=== PATIENT | female | born 1965 | race Caucasian/White ===

== ENCOUNTER → 2017-06-29 | Outpatient (CLI) | payer OTHER | END | disposition home or self-care (01) | LOC: MAMMO 13:14 | DX: N63.20 Unspecified lump in the left breast, unspecified quadrant (principal) | CPT/HCPCS: 76641; 77066; G0279 ==

== ENCOUNTER → 2017-07-23 | Outpatient (CLI) | payer OTHER ==
[2017-07-23] MEDS: REGADENOSON 0.4 MG/5 ML DISP.SYRIN. IV (11:41)
== END | disposition home or self-care (01) ==
LOC: NM 09:09
DX: R94.31 Abnormal electrocardiogram [ECG] [EKG] (principal); I10 Essential (primary) hypertension; E11.9 Type 2 diabetes mellitus without complications; Z86.73 Personal history of transient ischemic attack (TIA), and cerebral infarction without residual deficits
CPT/HCPCS: 78452; 93017; 93306; 96374; 96375; 96376; A9500; J2785

== ENCOUNTER 2017-08-03 07:57 | Outpatient (CLI) | payer OTHER ==
[2017-08-03 08:42] LABS: ANION GAP 11 (6-14); BLOOD UREA NITROGEN 20 mg/dL (7-20); CALCIUM 9.7 mg/dL (8.5-10.1); CARBON DIOXIDE 30 mmol/L (21-32); CHLORIDE 100 mmol/L (98-107); CREATININE 0.8 mg/dL (0.6-1.0); GFR 75.3; GLUCOSE 127 mg/dL (70-99); POTASSIUM 3.1 mmol/L (3.5-5.1); SODIUM 141 mmol/L (136-145)
[2017-08-03 08:57] LABS: HEMATOCRIT 44.3 % (36.0-47.0); HEMOGLOBIN 14.7 g/dL (12.0-15.5); MEAN CORPUSCULAR HEMOGLOBIN 30 pg (25-35); MEAN CORPUSCULAR HGB CONC 33 g/dL (31-37); MEAN CORPUSCULAR VOLUME 89 fL (79-100); PLATELET COUNT 369 x10^3/uL (140-400); RED BLOOD COUNT 4.98 x10^6/uL (3.50-5.40); RED CELL DISTRIBUTION WIDTH 16.2 % (11.5-14.5)
[2017-08-03 09:04] LABS: PROTHROMBIN TIME PATIENT 12.9 SEC (11.7-14.0)
[2017-08-03] MEDS ORDERED: IOHEXOL 300 MG/ML 100ML VIAL. (09:36)
[2017-08-03] MEDS ORDERED: LIDOCAINE 2% 20 ML VIAL. (09:36)
[2017-08-03] MEDS ORDERED: fentaNYL PF VIAL 100 MCG/2 ML VIAL (09:50)
[2017-08-03] MEDS ORDERED: MIDAZOLAM HCL/PF 2 MG/2 ML VIAL. ×2 (09:50→10:25)
[2017-08-03] MEDS ORDERED: VERAPAMIL 5 MG/2 ML VIAL. (10:02)
[2017-08-03] MEDS ORDERED: HEPARIN for IV BOLUS 10,000 UNIT/10 ML VIAL. (10:02)
[2017-08-03] MEDS ORDERED: NITROGLYCERIN 200 MCG/2 ML SYRINGE FOR CATH/VASC LAB. (10:02)
[2017-08-03] MEDS: MIDAZOLAM HCL/PF 2 MG/2 ML VIAL. IV (10:44)
[2017-08-03] MEDS: fentaNYL PF VIAL 100 MCG/2 ML VIAL IV (10:44)
[2017-08-03] MEDS: VERAPAMIL 5 MG/2 ML VIAL. IART (10:45)
[2017-08-03] MEDS: HEPARIN for IV BOLUS 10,000 UNIT/10 ML VIAL. IART (10:46)
[2017-08-03] MEDS: NITROGLYCERIN 200 MCG/2 ML SYRINGE FOR CATH/VASC LAB. IART (10:46)
[2017-08-03] MEDS: LIDOCAINE 2% 20 ML VIAL. IJ (10:47)
[2017-08-03] MEDS: IOHEXOL 300 MG/ML 100ML VIAL. IART (10:47)
[2017-08-03] MEDS ORDERED: IV 1/2 NORMAL SALINE 1,000 ML IV (10:48)
[2017-08-03] MEDS ORDERED: NITROGLYCERIN SUBLINGUAL 0.4 MG BOTTLE OF 25. SL (11:00)
[2017-08-03] MEDS ORDERED: oxyCODONE/APAP 5/325 1 TAB TABLET (11:27)
== END 2017-08-03 14:00 | disposition home or self-care (01) ==
LOC: CCL 07:57
DX: I25.118 Atherosclerotic heart disease of native coronary artery with other forms of angina pectoris (principal); I10 Essential (primary) hypertension; E11.9 Type 2 diabetes mellitus without complications; Z79.82 Long term (current) use of aspirin; Z79.899 Other long term (current) drug therapy; Z86.73 Personal history of transient ischemic attack (TIA), and cerebral infarction without residual deficits
CPT/HCPCS: 36415; 80048; 85027; 85610; 93458; 99152; 99153; C1769; C1892; J1644; J2250; J3010; J3490; Q9967

== ENCOUNTER → 2017-08-15 | Outpatient (CLI) | payer OTHER | END | disposition home or self-care (01) | LOC: US 09:42 | DX: C50.912 Malignant neoplasm of unspecified site of left female breast (principal); C77.3 Secondary and unspecified malignant neoplasm of axilla and upper limb lymph nodes | CPT/HCPCS: 19081; 19083; 38505; 76942; 77065; 88305; 88341; 88342; 88361; C1713 ==

== ENCOUNTER → 2017-09-28 | Outpatient (CLI) | payer OTHER | END | disposition home or self-care (01) | LOC: US 08:51 | DX: C50.912 Malignant neoplasm of unspecified site of left female breast (principal); R59.0 Localized enlarged lymph nodes; E78.00 Pure hypercholesterolemia, unspecified; I10 Essential (primary) hypertension; K21.9 Gastro-esophageal reflux disease without esophagitis; F32.9 Major depressive disorder, single episode, unspecified; F41.9 Anxiety disorder, unspecified; Z98.42 Cataract extraction status, left eye; Z98.41 Cataract extraction status, right eye | CPT/HCPCS: 38505; 60100; 76942; 88305; 88342; C1713 ==

== ENCOUNTER → 2017-10-17 | Outpatient (CLI) | payer OTHER | END | disposition home or self-care (01) | LOC: MAMMO 12:08 | DX: C50.412 Malignant neoplasm of upper-outer quadrant of left female breast (principal); E78.5 Hyperlipidemia, unspecified; Z17.0 Estrogen receptor positive status [ER+] | CPT/HCPCS: 76641; 77066 ==

== ENCOUNTER 2017-12-03 09:23 | Day surgery (SDC) | payer OTHER ==
[~2017-12-03 09:23] MED LIST: HEPARIN SODIUM 5,000 UNIT in IV NORMAL SALINE 500ML BAG 500 ML IRR; LIDOCAINE 1% PF 2 ML VIAL. ID; LIDOCAINE 1% PF 30 ML VIAL.; LIDOCAINE 2% PF Vial for OR 5 ML VIAL.; MIDAZOLAM HCL/PF 2 MG/2 ML VIAL.; MORPHINE SULFATE 2 MG/ML DISP.SYRIN. IV; ONDANSETRON PF 4 MG/2 ML VIAL. IV; PROCHLORPERAZINE 10 MG/2 ML VIAL. IV; PROPOFOL 20 ML IV; ceFAZolin 2GM PREMIX 2 GM/50 ML BAG IV; fentaNYL PF VIAL 100 MCG/2 ML VIAL; fentaNYL PF VIAL 100 MCG/2 ML VIAL IV
[2017-12-03 10:00] LABS: POC GLUCOSE 65 mg/dL (70-99)
[2017-12-03] MEDS: IV RINGERS,LACTATED 1000ML 1,000 ML IV (10:05)
[2017-12-03 10:41] LABS: POC GLUCOSE 80 mg/dL (70-99)
[2017-12-03] MEDS ORDERED: ONDANSETRON PF 4 MG/2 ML VIAL. (10:53)
[2017-12-03] MEDS ORDERED: DEXAMETHASONE SOD PHOS 20 MG/5 ML VIAL. (10:53)
[2017-12-03 11:56] LABS: POC GLUCOSE 66 mg/dL (70-99)
[2017-12-03] MEDS ORDERED: fentaNYL PF VIAL 100 MCG/2 ML VIAL (12:06)
[2017-12-03] MEDS: fentaNYL PF VIAL 100 MCG/2 ML VIAL IV ×2 (12:10→12:36)
[2017-12-03] MEDS ORDERED: HYDROcodone/APAP 5/325MG 1 TAB TABLET (12:26)
[2017-12-03] MEDS: HYDROcodone/APAP 5/325MG 1 TAB TABLET PO (12:33)
== END 2017-12-03 13:25 | disposition home or self-care (01) ==
LOC: SURG 09:23
DX: C50.912 Malignant neoplasm of unspecified site of left female breast (principal); C77.3 Secondary and unspecified malignant neoplasm of axilla and upper limb lymph nodes; I10 Essential (primary) hypertension; E78.00 Pure hypercholesterolemia, unspecified; F32.9 Major depressive disorder, single episode, unspecified; F41.9 Anxiety disorder, unspecified; E66.9 Obesity, unspecified; Z68.26 Body mass index [BMI] 26.0-26.9, adult; K21.9 Gastro-esophageal reflux disease without esophagitis; Z87.442 Personal history of urinary calculi; Z86.73 Personal history of transient ischemic attack (TIA), and cerebral infarction without residual deficits; E11.319 Type 2 diabetes mellitus with unspecified diabetic retinopathy without macular edema; Z90.49 Acquired absence of other specified parts of digestive tract; Z98.890 Other specified postprocedural states; Z98.51 Tubal ligation status; Z98.42 Cataract extraction status, left eye; Z96.1 Presence of intraocular lens; Z17.0 Estrogen receptor positive status [ER+]; Z82.3 Family history of stroke; Z82.49 Family history of ischemic heart disease and other diseases of the circulatory system; Z87.891 Personal history of nicotine dependence; Z72.89 Other problems related to lifestyle; Z79.82 Long term (current) use of aspirin; Z79.899 Other long term (current) drug therapy; Z91.040 Latex allergy status; Z91.048 Other nonmedicinal substance allergy status; Z87.440 Personal history of urinary (tract) infections; Z79.84 Long term (current) use of oral hypoglycemic drugs
CPT/HCPCS: 36556; 36561; 71045; 77001; 82962; A7015; C1788; J0690; J1100; J1644; J2001; J2250; J2405; J2704; J3010; J7040

== ENCOUNTER 2018-04-15 09:52 | Observation (INO) | payer OTHER ==
[2018-04-15] VITALS (11 sets, daily range): BP systolic 119–174; BP diastolic 49–75
[~2018-04-15] VITALS: Ht 157.5 cm; Wt 65.8 kg
[~2018-04-15 09:52] MED LIST changes: +AMLO10TA6 PO; +ASPI-482 PO; +ATOR20TA58 PO; +BUPR150T6 PO; +CIPR500T94 PO; +CITA20TA9 PO; +CLOP75TA PO; +GLIP5TAB10 PO; -HEPARIN SODIUM 5,000 UNIT in IV NORMAL SALINE 500ML BAG 500 ML IRR; +HYDR-2868 PO; +HYDR-3164 PO; +HYDROmorphone 2 MG/ML VIAL IV PRN; -LIDOCAINE 1% PF 2 ML VIAL. ID; +LIDOCAINE 1% PF 2 ML VIAL. ID PRN; -LIDOCAINE 1% PF 30 ML VIAL.; -LIDOCAINE 2% PF Vial for OR 5 ML VIAL.; +LISI-130 PO; +METF10007 PO; +METF500T16 PO; -MIDAZOLAM HCL/PF 2 MG/2 ML VIAL.; -MORPHINE SULFATE 2 MG/ML DISP.SYRIN. IV; +MORPHINE SULFATE 2 MG/ML VIAL. IV PRN; +MULT1TAB52 PO; -ONDANSETRON PF 4 MG/2 ML VIAL. IV; +ONDANSETRON PF 4 MG/2 ML VIAL. IV PRN; +PARO20TA3 PO; -PROCHLORPERAZINE 10 MG/2 ML VIAL. IV; +PROCHLORPERAZINE 10 MG/2 ML VIAL. IV PRN; -PROPOFOL 20 ML IV; +RANI150T2 PO; -ceFAZolin 2GM PREMIX 2 GM/50 ML BAG IV; -fentaNYL PF VIAL 100 MCG/2 ML VIAL; -fentaNYL PF VIAL 100 MCG/2 ML VIAL IV; +fentaNYL PF VIAL 100 MCG/2 ML VIAL IV PRN
[2018-04-15] MEDS: IV RINGERS,LACTATED 1000ML 1,000 ML IV SCH ×2 (11:24→15:44)
[2018-04-15] MEDS ORDERED: PROPOFOL 20 ML IV ONE (12:15)
[2018-04-15] MEDS ORDERED: ONDANSETRON PF 4 MG/2 ML VIAL. ONE (12:15)
[2018-04-15] MEDS ORDERED: fentaNYL PF VIAL 100 MCG/2 ML VIAL ONE ×2 (12:15→13:42)
[2018-04-15] MEDS ORDERED: LIDOCAINE 2% PF Vial for OR 5 ML VIAL. ONE (12:15)
[2018-04-15] MEDS ORDERED: DEXAMETHASONE SOD PHOS 20 MG/5 ML VIAL. ONE (12:15)
[2018-04-15] MEDS ORDERED: MIDAZOLAM HCL/PF 2 MG/2 ML VIAL. ONE (12:16)
[2018-04-15] MEDS ORDERED: ISOSULFAN BLUE 50 MG/5 ML VIAL. SQ ONE (12:37)
[2018-04-15] MEDS ORDERED: SEVOFLURANE 61 TO 120 MINUTES. IH ONE (13:48)
[2018-04-15] MEDS ORDERED: PHENYLEPHRINE 10 MG/ML VIAL. ONE (13:48)
[2018-04-15] MEDS ORDERED: SEVOFLURANE > 120 MINUTES. IH ONE (14:53)
[2018-04-15] MEDS: IV 1/2 NORMAL SALINE 1,000 ML IV SCH (15:29)
--- NOTE | 2018-04-15 15:29 | PDOC4 ---
Operative Note Operative Note Operative Note: Preoperative Diagnosis: Left breast cancer Postoperative Diagnosis: Same Procedure: Left modified radical mastectomy, removal of Port-A-Cath Surgeon: Burt Medical Records Analyst: Radhika MORELAND Anesthesia: Gen. EBL: 50 mL Specimen: Left breast, axillary contents to pathology Drains: 19 Azerbaijani round Greg drain to chest wall Complications: None Indication: The patient is a 53-year-old female who has been receiving neoadjuvant chemotherapy for left breast cancer. She's had a partial response however continues to have a moderate-sized tumor with lymphadenopathy. The plan is to proceed with a modified radical mastectomy and her Port-A-Cath will be removed as well. The risks of surgery were discussed with the patient which include bleeding, infection, scar tissue, pain, lymphedema, anesthetic risk, wound healing problems, potential need for additional surgery or procedure. She understands and would like to proceed. Description: The patient was taken to the operating room and placed supine on the operating table. Gen. anesthesia was performed. The bilateral chest and left axilla were prepped with ChloraPrep and draped in a standard surgical manner. An elliptical incision was made across the left breast extending from the axilla to the medial aspect and including the nipple areolar complex. The superior flap was developed first. The skin was mobilized from the deeper breast parenchyma using cautery and the dissection continued just below the level of the clavicle. In a similar manner the inferior flap was developed the skin from the breast extending to the upper torso including the inframammary fold. In a medial to lateral fashion the breast was taken off of the chest wall with cautery. A stitch was used to chato the 12 o'clock position and the breast was sent off to pathology. We then began the axillary dissection. The boundaries of the dissection included the axillary vein superiorly, the pectoralis muscle medially, and the latissimus muscle laterally. In a superior to inferior manner the adipose and lymphatic tissues were mobilized out of the axilla. Both the long thoracic and thoracodorsal nerves were identified and preserved. A few small vessels feeding the axillary contents were ligated with 2-0 Vicryl and divided. The axillary contents were then completely excised and sent to pathology. Hemostasis was good. A 19 Azerbaijani round Greg drain was left in the chest space which exited inferiorly and was secured to the skin with 2-0 silk. The subcutaneous tissues closed with 3-0 Vicryl and the skin was approximated with 4-0 Monocryl. We then directed our attention to the right chest. With a scalpel an incision was made at the prior Port-A-Cath scar. The capsule of the port was opened and the attaching Prolene sutures were cut. The port was then withdrawn and the tract of the catheter was oversewn with 2-0 Vicryl. Hemostasis was good with cautery and the skin was closed with 4-0 Monocryl. Dressings were applied and the patient was sent to the recovery room in stable condition. At the end of the case all counts were correct. EMIL FUENTES MD Apr 15, 2018 15:29
[2018-04-15] MEDS ORDERED: oxyCODONE/APAP 5/325 1 TAB TABLET PO PRN (15:30)
[2018-04-15] MEDS ORDERED: ONDANSETRON PF 4 MG/2 ML VIAL. IV PRN (15:30)
[2018-04-15] MEDS ORDERED: MORPHINE SULFATE 2 MG/ML VIAL. IV PRN (15:30)
[2018-04-15] MEDS ORDERED: 0.9 % SODIUM CHLORIDE 10 ML DISP.SYRIN. IV PRN (15:30)
[2018-04-15] MEDS ORDERED: glipiZIDE 5 MG TABLET PO PRN (15:45)
[2018-04-15] MEDS ORDERED: DEXTROSE 50% 25 GM / 50ML DISP.SYRIN. IV PRN (15:45)
[2018-04-15] MEDS: fentaNYL PF VIAL 100 MCG/2 ML VIAL IV PRN ×2 (15:53→16:23)
[2018-04-15] MEDS: INSULIN LISPRO 300 UNITS/3 ML INSULN.PEN. SQ SCH (17:00)
[2018-04-15] MEDS: PARoxetine 20 MG TABLET PO SCH (17:55)
[2018-04-15] MEDS: metFORMIN 500 MG TABLET PO SCH (17:55)
[2018-04-15] MEDS: amLODIPine BESYLATE 10 MG TABLET PO SCH (17:56)
[2018-04-15] MEDS: oxyCODONE/APAP 5/325 1 TAB TABLET PO PRN (17:58)
[2018-04-15] MEDS ORDERED: buPROPion XL 150 MG TAB.ER.24H. PO SCH (18:00)
[2018-04-15] MEDS ORDERED: ATORVASTATIN CALCIUM 20 MG TABLET PO SCH (21:00)
[2018-04-15] MEDS: FAMOTIDINE 20 MG TABLET. PO SCH (21:11)
[2018-04-15] MEDS: hydrALAZINE 25 MG TABLET PO SCH (21:12)
[2018-04-15] MEDS ORDERED: INSULIN LISPRO 300 UNITS/3 ML INSULN.PEN. SQ ONE (21:45)
[2018-04-16 03:00] VITALS: BP 145/62
[2018-04-16] MEDS: IV 1/2 NORMAL SALINE 1,000 ML IV SCH (03:20)
[2018-04-16 07:00] VITALS: BP 145/67
[2018-04-16] MEDS: INSULIN LISPRO 300 UNITS/3 ML INSULN.PEN. SQ SCH ×2 (08:00→11:52)
[2018-04-16] MEDS: amLODIPine BESYLATE 10 MG TABLET PO SCH (08:09)
[2018-04-16] MEDS: metFORMIN 500 MG TABLET PO SCH (08:09)
[2018-04-16] MEDS: hydrALAZINE 25 MG TABLET PO SCH (08:10)
[2018-04-16] MEDS: PARoxetine 20 MG TABLET PO SCH (08:10)
[2018-04-16] MEDS: FAMOTIDINE 20 MG TABLET. PO SCH (08:10)
[2018-04-16] MEDS: oxyCODONE/APAP 5/325 1 TAB TABLET PO PRN (08:13)
--- NOTE | 2018-04-16 08:17 | PDOC ---
CYNDY GAONA APRN 04/16/18 0817: SURGICAL PROGRESS NOTE Subjective tolerating diet pain managed urinating Vital Signs Vital Signs Date Time Temp Pulse Resp B/P (MAP) Pulse Ox O2 Delivery O2 Flow Rate FiO2 04/16/18 08:13 Room Air 04/16/18 08:10 91 145/67 04/16/18 03:00 98.5 18 95 2.0 98.5 I&O Intake and Output 04/16/18 07:00 Intake Total 2780 ml Output Total 1120 ml Balance 1660 ml Intake Oral 630 ml IV Total 2150 ml Output Urine Total 900 ml Drainage Total 170 ml Estimated Blood Loss 50 ml # Voids 1 General: Alert, Oriented X3, Cooperative, No acute distress Skin: Other (left breast incision dressing dry, no significant swelling, drain serosang ) Labs Laboratory Tests Test 04/15/18 11:17 04/15/18 15:24 04/15/18 20:49 04/16/18 07:26 Glucose (Fingerstick) 85 mg/dL (70-99) 99 mg/dL (70-99) 206 mg/dL (70-99) 89 mg/dL (70-99) Laboratory Tests Test 04/15/18 11:17 04/15/18 15:24 04/15/18 20:49 04/16/18 07:26 Glucose (Fingerstick) 85 mg/dL (70-99) 99 mg/dL (70-99) 206 mg/dL (70-99) 89 mg/dL (70-99) Assessment/Plan s/p left radical mastectomy drain teaching home today EMIL FUENTES MD 04/16/18 1242: SURGICAL PROGRESS NOTE Assessment/Plan Agree with above CYNDY GAONA APRN Apr 16, 2018 08:17 EMIL FUENTES MD Apr 16, 2018 12:42
--- NOTE | 2018-04-16 08:19 | DISCH ---
DISCHARGE INSTRUCTIONS Condition on Discharge Condition on Discharge: Stable Activity After Discharge Activity Instructions for Disc: Resume previous activity Bathing Instructions: Shower-keep dressing dry Lifting Instructions after Dis: No heavy lifting, No pulling or pushing Driving Instructions after Dis: Do not drive, Other, see below Diet after Discharge Diet after Discharge: Regular Wound Incision Care Wound/Incision Care: Do not change dressing, Other, see below Other wound/incision instructi: drain teaching Contacting the after DC Call your doctor for: Concerns you may have Follow-Up Follow up with: Dr Dallas 1 week, call to schedule [phone] CYNDY GAONA RHEOSTAT ASSEMBLER Apr 16, 2018 08:19
[2018-04-16] MEDS ORDERED: OXYC1TAB15 PO (08:20)
[2018-04-16] MEDS ORDERED: MULTIVITAMIN with MINERAL TABLET. PO SCH (09:00)
[2018-04-16] MEDS ORDERED: ASPIRIN ENTERIC COATED 81 MG TABLET.DR. PO SCH (09:00)
[2018-04-16] MEDS ORDERED: LISINOPRIL 20 MG TABLET PO SCH (09:00)
[2018-04-16 11:00] VITALS: BP 128/53
== END 2018-04-16 12:47 | disposition home or self-care (01) ==
LOC: SURG 09:52 → 4 NORTH 15:50
PROVIDERS: ADMIT Surgery; ATTEND Surgery
DX: C50.912 Malignant neoplasm of unspecified site of left female breast (principal); Z79.899 Other long term (current) drug therapy
CPT/HCPCS: 19307; 36590; 82962; A7015; G0378; G0379; J0690; J0780; J1100; J1815; J2001; J2250; J2405; J2704; J3010; J7120; J2270; Q9968

== ENCOUNTER 2018-05-01 19:31 | Emergency (ER) | payer OTHER ==
[~2018-05-01] VITALS: Ht 160 cm; Wt 67.1 kg
[~2018-05-01 19:31] MED LIST changes: -HYDROmorphone 2 MG/ML VIAL IV PRN; -LIDOCAINE 1% PF 2 ML VIAL. ID PRN; -MORPHINE SULFATE 2 MG/ML VIAL. IV PRN; -ONDANSETRON PF 4 MG/2 ML VIAL. IV PRN; +OXYC1TAB15 PO; -PROCHLORPERAZINE 10 MG/2 ML VIAL. IV PRN; -fentaNYL PF VIAL 100 MCG/2 ML VIAL IV PRN
[2018-05-01 20:20] VITALS: BP 169/77
--- NOTE | 2018-05-01 23:01 | PHYS DOC ---
Past Medical History Past Medical History: Depression, Diabetes-Type II, Hypertension, Other Additional Past Medical Histor: sciatica, Past Surgical History: Appendectomy, Tubal ligation, Other Additional Past Surgical Histo: LEFT MASECTOMY Alcohol Use: None Drug Use: None Adult General Chief Complaint Chief Complaint: POST-OP PROBLEM HPI HPI Patient is a 53 year old f with cc of referred by ab due to drain fell out. Apparently the patient thought that the drain cracked and broke in her skin family member thought that he could see it at the skin level Dr. Whalen called me and asked me to look to see if I could take it out with the hemostat Allergies Allergies Allergies Coded Allergies Type Severity Reaction Last Updated Verified Latex, Natural Rubber Allergy Intermediate GETS BLISTER,CHAPPED SKIN ON HANDS 04/15/18 Yes Physical Exam Physical Exam Constitutional: Well developed, well nourished, no acute distress, non-toxic appearance. [] HENT: Normocephalic, atraumatic, bilateral external ears normal, oropharynx moist, no oral exudates, nose normal. [] Eyes: PERRLA conjunctiva normal, no discharge. [] Pulmonary: Normal respiratory effort no increased work of breathing no obvious chest wall trauma Skin: The lateral skin incision left upper chest area in the midaxillary line there is a 0.5 cm opening there is no surrounding infection seen there is trace serosanguineous discharge noted I did use a hemostat to explore the wound and I found nothing. I did look at the WU drain it appear to be removed entirely in 1 piece. she had it at the bedside in a bag Back: No tenderness, no CVA tenderness. [] Extremities: No tenderness, no cyanosis, no clubbing, ROM intact, no edema. [] Neurologic: Alert and oriented X 3, normal motor function, normal sensory function, no focal deficits noted. [] Current Patient Data Vital Signs Vital Signs Date Time Temp Pulse Resp B/P (MAP) Pulse Ox O2 Delivery O2 Flow Rate FiO2 05/01/18 20:20 98.3 89 18 169/77 (107) 99 Room Air 98.3 EKG EKG [] Radiology/Procedures Radiology/Procedures [] Impressions: cxr no radioopaque drain seeen. Course & Med Decision Making Course & Med Decision Making Pertinent Labs and Imaging studies reviewed. (See chart for details) []i talked with ab, he suggests xray if negative can f/u tomrorow in clinic. reviewed with pt recommended also bp f/u one month it was mildly elevated. wound was redressed with gauze and pt was given some materials for home care as well. Dragon Disclaimer Dragon Disclaimer This electronic medical record was generated, in whole or in part, using a voice recognition dictation system. Departure Departure Impression: Primary Impression: Visit for wound check Additional Impression: Elevated blood pressure reading Disposition: HOME, SELF-CARE Condition: STABLE Referrals: KARINE KEEN MD (PCP) Patient Instructions: Wound Check Problem Qualifiers OSEAS CANDELARIO MD May 01, 2018 23:01
--- NOTE | 2018-05-01 23:22 | RAD ---
PORTABLE CHEST 1V Clinical Indication: Mechanical fall today Comparison: AP chest December 03, 2017. Findings: Previously seen right Port-A-Cath has been removed. Atherosclerotic aortic arch. Cardiac size upper limits of normal, stable. Stable calcified granuloma right midlung. Lungs are clear. There is no pneumothorax. No pleural effusion is appreciated. Degenerative endplate spurring of the thoracic spine is moderate. IMPRESSION: No acute cardiopulmonary process. Electronically signed by: Kian Figueroa MD (05/01/2018 11:18 PM) [facility]
[2018-05-02] MEDS ORDERED: OXYC1TAB15 PO (09:23)
== END 2018-05-01 21:40 | disposition home or self-care (01) ==
LOC: ER 19:31
DX: Z48.01 Encounter for change or removal of surgical wound dressing (principal); I10 Essential (primary) hypertension; E11.9 Type 2 diabetes mellitus without complications; Z90.89 Acquired absence of other organs; Z91.040 Latex allergy status
CPT/HCPCS: 71045; 99283

== ENCOUNTER 2018-05-08 12:00 | Day surgery (SDC) | payer OTHER ==
[2018-05-08] MEDS ORDERED: IV RINGERS,LACTATED 1000ML 1,000 ML IV SCH (12:45)
[2018-05-08] MEDS ORDERED: PROPOFOL 20 ML IV ONE (13:27)
[2018-05-08] MEDS ORDERED: LIDOCAINE 2% PF Vial for OR 5 ML VIAL. ONE (13:27)
[2018-05-08] MEDS ORDERED: LIDOCAINE 1%/EPI 1:100,000 20 ML VIAL. ONE (13:47)
[2018-05-08] MEDS ORDERED: DEXAMETHASONE SOD PHOS 20 MG/5 ML VIAL. ONE (14:08)
[2018-05-08] MEDS ORDERED: ONDANSETRON PF 4 MG/2 ML VIAL. ONE (14:08)
[2018-05-08] MEDS ORDERED: SEVOFLURANE 31 TO 60 MINUTES. IH ONE (14:08)
[2018-05-08] MEDS ORDERED: fentaNYL PF VIAL 100 MCG/2 ML VIAL ONE (14:12)
[2018-05-08] MEDS ORDERED: ePHEDrine PF IN SALINE 50 MG/5 ML DISP.SYRIN IV ONE (14:27)
--- NOTE | 2018-05-08 14:56 | PDOC4 ---
Operative Note Operative Note Operative Note: Preoperative Diagnosis: Left chest wall seroma Postoperative Diagnosis: Same Procedure: Drainage of left chest wall seroma Surgeon: Burt Conductor Orchestra: Tamia MORELAND Anesthesia: Gen EBL: 15 ml Specimen: None Drains: 19 Fr WU Complications: None Indication: The patient is a 53-year-old female who recently underwent a left mastectomy for breast cancer. Her drain came out while at home prematurely and she is developed a sizable chest seroma. In addition there is a very thin eschar at the middle portion of her incision site. The plan is for the seroma collection with replacement of the drain and excision of the eschar. The risks of surgery were discussed with the patient which include bleeding infection recurrence pain anesthetic risk potential need for additional surgery or procedure. She understands and would like to proceed. Description: The patient was taken the operating room placed supine on the operating table. Gen. anesthesia was performed. The left chest skin was prepped with ChloraPrep and draped in a standard surgical manner. The middle portion of her prior incision site showed a very small thin eschar. With a scalpel an elliptical incision was made around the eschar which was excised. There was immediate return of a large amount of serous fluid from the seroma. The seroma cavity was fully drained. The seroma cavity was then washed with sterile saline and a 19 Telugu round Greg drain was placed in the cavity which exited inferiorly. The drain was secured to the skin with 2-0 silk. The subcutaneous tissue was approximated over the drain with 3-0 Vicryl. The skin was then approximated with 4-0 Monocryl. A sterile OpSite dressing was then applied. The patient tolerated the procedure well and was sent to the recovery room in stable condition. At the end of the case all counts were correct. EMIL FUENTES MD May 08, 2018 14:56
--- NOTE | 2018-05-08 15:06 | DISCH ---
DISCHARGE INSTRUCTIONS Condition on Discharge Condition on Discharge: Stable Activity After Discharge Activity Instructions for Disc: Resume previous activity Diet after Discharge Diet after Discharge: Regular Wound Incision Care Wound/Incision Care: Other, see below (keep dressing clean and dry) Follow-Up Follow up with: Dr Fuentes 1 week in the office, call for appt [phone] EMIL FUENTES MD May 08, 2018 15:06
[2018-05-08] MEDS ORDERED: oxyCODONE/APAP 5/325 1 TAB TABLET PO ONE (15:30)
[2018-05-08 15:45] VITALS: BP 161/66
== END 2018-05-08 16:14 | disposition home or self-care (01) ==
LOC: SURG 12:00
PROVIDERS: ATTEND Surgery
DX: M96.843 Postprocedural seroma of a musculoskeletal structure following other procedure (principal); F32.9 Major depressive disorder, single episode, unspecified; I10 Essential (primary) hypertension; E78.5 Hyperlipidemia, unspecified; Z85.3 Personal history of malignant neoplasm of breast; Z91.040 Latex allergy status; Z79.82 Long term (current) use of aspirin; Z79.899 Other long term (current) drug therapy; Z87.442 Personal history of urinary calculi; Z86.73 Personal history of transient ischemic attack (TIA), and cerebral infarction without residual deficits; E11.319 Type 2 diabetes mellitus with unspecified diabetic retinopathy without macular edema; Z98.51 Tubal ligation status; Z90.49 Acquired absence of other specified parts of digestive tract; Z98.42 Cataract extraction status, left eye; Z96.1 Presence of intraocular lens; Z98.890 Other specified postprocedural states; Z90.12 Acquired absence of left breast and nipple; Z82.49 Family history of ischemic heart disease and other diseases of the circulatory system; Z82.3 Family history of stroke; Z87.891 Personal history of nicotine dependence; Z72.89 Other problems related to lifestyle; Y83.8 Other surgical procedures as the cause of abnormal reaction of the patient, or of later complication, without mention of misadventure at the time of the procedure; Z79.84 Long term (current) use of oral hypoglycemic drugs
CPT/HCPCS: 10140; 82962; A7015; J0690; J1100; J2001; J2405; J2704; J3010; J7120; J0696; J3490

== ENCOUNTER → 2018-12-02 | Outpatient (CLI) | payer OTHER ==
[~2018-12-02] MED LIST changes: -AMLO10TA6 PO; +AMLO10TA8 PO
--- NOTE | 2018-12-02 13:46 | RAD ---
DATE: 12/02/2018 EXAM: DIGITAL DIAGNOSTIC RT HISTORY: Left mastectomy in 2018 COMPARISON: 10/17/2017 mammographic exam This study was interpreted with the benefit of Computerized Aided Detection (CAD). Breast Density: SCATTERED The breast parenchyma shows scattered fibroglandular densities. Breast parenchyma level B. FINDINGS: Minimal benign calcification is present. No mass or distortion in the interval. No suspicious calcification identified. IMPRESSION: Stable BI-RADS CATEGORY: 1 NEGATIVE RECOMMENDED FOLLOW-UP: 12M 12 MONTH FOLLOW-UP PQRS compliance statement: Patient information was entered into a reminder system with a target due date in one year for the next mammogram. Mammography is a sensitive method for finding small breast cancers, but it does not detect them all and is not a substitute for careful clinical examination. A negative mammogram does not negate a clinically suspicious finding and should not result in delay in biopsying a clinically suspicious abnormality. "Our facility is accredited by the [employer] Mammography Program."
== END | disposition home or self-care (01) ==
LOC: MAMMO 14:51
PROVIDERS: ATTEND Internal Medicine Hematology & Oncology
DX: C50.412 Malignant neoplasm of upper-outer quadrant of left female breast (principal); R92.1 Mammographic calcification found on diagnostic imaging of breast; Z17.0 Estrogen receptor positive status [ER+]; Z90.12 Acquired absence of left breast and nipple
CPT/HCPCS: 77065

== ENCOUNTER → 2019-12-04 | Outpatient (CLI) | payer MEDICARE, OTHER ==
[~2019-12-04] MED LIST changes: +MULT-445 PO; -MULT1TAB52 PO
--- NOTE | 2019-12-04 12:07 | RAD ---
DATE: 12/04/2019 9:43 AM EXAM: MAMMO YVETTE BAXTER RT, BREAST RIGHT HISTORY: Patient due for screening but has a personal history of left mastectomy for breast cancer in 2018. Her medical oncologist refers her for diagnostic right mammogram. COMPARISON: Bilateral diagnostic mammogram and bilateral breast ultrasound of June 29, 2017, right diagnostic mammogram 12/02/2018. TECHNIQUE: CC and MLO views of the right breast were obtained. Breast tomosynthesis was performed in CC and MLO projections. A right Spot CC and a full-field lateral 2-D and 3-D ML view of the breasts were obtained. This study was interpreted with the benefit of Computerized Aided Detection (CAD). Targeted ultrasound of the upper-outer quadrant right breast was also performed. FINDINGS: Breast Density: HETERO The breast parenchyma Is heterogeneously dense, which could reduce sensitivity of mammography. Breast parenchyma level C An asymmetry in the lateral posterior right breast best appreciated on image 15 of 30 on the CC tomographic series changed configuration on additional views in a pattern suggesting overlap of dense fibroglandular tissue. Targeted ultrasound of the upper-outer quadrant right breast was also pursued at this visit and showed no definite sonographic abnormality. IMPRESSION: Probably benign overlap of dense fibroglandular tissue in the lateral posterior right breast. BI-RADS CATEGORY: 3 PROBABLY BENIGN FINDING(S)-SHORT INTERVAL FOLLOW-UP SUGGESTED RECOMMENDED FOLLOW-UP: 6M 6 MONTH FOLLOW-UP Recommend six-month follow-up right diagnostic mammogram with possible ultrasound. Discussed with the patient in person prior to her discharge from the imaging suite, as well as with her medical oncologist Dr. Zaldivar by telephone at 11:34 AM on 12/04/2019. PQRS compliance statement: Patient information was entered into a reminder system with a target due date for the next mammogram. Mammography is a sensitive method for finding small breast cancers, but it does not detect them all and is not a substitute for careful clinical examination. A negative mammogram does not negate a clinically suspicious finding and should not result in delay in biopsying a clinically suspicious abnormality. "Our facility is accredited by the [employer] Mammography Program."
== END | disposition home or self-care (01) ==
LOC: MAMMO 09:14
PROVIDERS: ATTEND Internal Medicine Hematology & Oncology
DX: R92.2 Inconclusive mammogram (principal)
CPT/HCPCS: 76641; 77065; G0279; 77061

== ENCOUNTER → 2020-03-10 | Outpatient (CLI) | payer MEDICARE ==
[~2020-03-10] MED LIST changes: +AMLO-187 PO; -AMLO10TA8 PO
--- NOTE | 2020-03-10 16:29 | RAD ---
Examination: 1. Digital diagnostic right mammogram. 2. Targeted right breast ultrasound INDICATION: 55-year-old woman with a history of left mastectomy for breast cancer presents with a new palpable lump in the right breast identified on self exam the past 3 weeks and confirmed on clinical exam by her referring physician (surgeon). She had recently been referred for diagnostic imaging of the right breast as part of routine surveillance and had been assessed as probably benign with an asymmetry in the lateral posterior right breast recommended for six-month short-term follow-up. COMPARISON: Right diagnostic mammogram of 12/04/2019, right screening mammogram of 12/02/2018 TECHNIQUE: CC and MLO views of the right breast were obtained with 2-D and 3-D technique and reviewed with computer-aided detection. Targeted ultrasound of the superior right breast the" as well as in the right axilla was also performed. FINDINGS: Heterogeneously dense breast parenchyma. A developing dense mass in the posterior central right breast measuring 1.9 cm at the right 12:00 position 12 cm from the nipple on mammography is newly apparent. This corresponds with the area of palpable concern is marked at the skin surface of the triangular marker. It has no relation to the area of questioned asymmetry in the lateral posterior right breast that was recommended for short-term follow-up. On diagnostic mammography at this visit, that area is mammographically benign. Targeted ultrasound of the right breast in the area of clinical and current mammographic concern reveals a hypoechoic irregular 1.8 cm mass in the area of palpable concern at the 1:00 position 11 cm from the nipple that corresponds to the mammographic finding. This is highly suggestive of malignancy. Targeted ultrasound of the right axilla also shows an axillary lymph node with eccentric cortical thickening that is mildly suspicious. IMPRESSION: New 1.8 cm right breast mass is highly suggestive of malignancy. Ultrasound-guided core needle biopsy is recommended. Right axillary lymph nodes with eccentric cortical thickening are also suspicious. Ultrasound-guided core needle biopsy also recommended. BI-RADS Category 5 Findings highly suggestive of malignancy. Biopsy recommended. Discussed with referring physician Dr. Juan F Dallas by telephone at approximately 11:30 AM on March 10, 2020. Electronically signed by: Kirstie Neal MD (03/10/2020 4:26 PM) [id number]
--- NOTE | 2020-03-10 16:44 | RAD ---
Examination: 1. Ultrasound-guided right breast core needle biopsy. 2. Ultrasound-guided right axillary lymph node core needle biopsy 3. Right postprocedure mammogram. INDICATION: Suspicious right breast palpable mass and right axillary lymph node recommended for biopsy. Patient is 55 years old and has a personal history of left mastectomy for breast cancer. COMPARISON: Earlier same day right mammogram and breast ultrasound. TECHNIQUE AND FINDINGS: Informed consent was obtained. An appropriate procedural pause was observed. Using standard sterile technique, ultrasound guidance and local anesthesia, the right breast mass at the 1:00 position 11 cm from the nipple was initially targeted for biopsy and the passes were made through the mass after which an S-shaped biopsy marker was deployed and hemostasis ensured with direct breast compression for 10 minutes. Thereafter, attention was turned to the right axillary lymph node showing asymmetric cortical thickening and two 14-gauge core biopsy samples were obtained, taking care to avoid an adjacent artery during lymph node sampling. An open padlock-shaped biopsy marker was deployed in the lymph node and hemostasis ensured with direct breast compression for 10 minutes. Digital right post procedure mammogram shows heterogeneously dense breast parenchyma. There is satisfactory deployment of the biopsy marker along the medial edge of the palpable mass in the medial superior right breast. The open padlock biopsy marker I deployed is appropriately located along the cortical margin of the selected lymph node. However, an S-shaped biopsy marker is also noted in the adjacent right axillary lymph node. Patient does not believe she has had a previous biopsy of her right axillary lymph nodes. No postbiopsy hematoma. IMPRESSION: 1. Successful, uncomplicated ultrasound-guided core needle biopsy of the palpable lump in the right breast and of the right axillary lymph node with eccentric cortical thickening. Pathology results are pending. An addendum will be issued once pathology results become available. 2. Patient does have evidence of a previous right axillary lymph node biopsy that was marked with an S-shaped biopsy marker. Correlation with previous histopathology results could be beneficial. The right axillary node targeted for biopsy at this visit was marked with an open padlock shaped biopsy marker. 3. Successful biopsy marker deployment in the right breast and right axilla with no postbiopsy hematoma. Electronically signed by: Kirstie Neal MD (03/10/2020 4:41 PM) [id number]
--- NOTE | 2020-03-12 15:09 | PATHOLOGY ---
[facility] Accession Number: [id number] . 01 Material submitted: . PART A: breast - RIGHT BREAST TISSUE, 1:00, 11CMFN. Modifiers: right, 1:00 PART B: lymph node - RIGHT AXILLA NODE TISSUE. Modifiers: right, axilla . 01 Clinical history: . RIGHT BREAST MASS . 02 Diagnosis: A. Breast tissue, right breast mass 1:00 needle biopsies: - INVASIVE DUCTAL CARCINOMA, HIGH-GRADE. SEE COMMENT. - Focus suspicious for lymphovascular tumor invasion. . B. Segments of lymph node and fibroadipose tissue, right axillary node needle biopsies: - Negative for tumor. (JPM:[facility] 03/12/2020) [facility] 03/12/2020 1425 Local . 02 Comment: Sections of the right breast mass at 1:00 needle biopsy reveal an invasive mammary carcinoma. Tumor cells are largely present in solid nests which infiltrate a reactive desmoplastic stroma and show little to no tubule formation. The tumor cells show marked nuclear atypia and possess prominent nucleoli. Mitotic figures are readily demonstrated. There is a small focus of high-grade ductal carcinoma in situ. There is focus suspicious for lymphovascular tumor invasion. The invasive carcinoma measures approximately 1.0 cm in greatest dimension on the glass slide. There are no tumor-associated calcifications. The morphologic findings are supportive of the diagnosis of an invasive high-grade ductal carcinoma. . Sections of the right axillary node needle biopsy reveal segments of lymph node and fibroadipose tissue. There is no evidence of metastatic carcinoma. . The case is also examined by Dr. Chavarria, who concurs with the diagnosis. Breast prognostic studies will be obtained on block A3, the results of which will be reported separately. (JP:[facility] 03/12/2020) . 02 Electronically signed: . Jeffery Baires MD, Pathologist NPI- [id number] . 01 Gross description: . A. The specimen is received in formalin, labeled "Marleni Yeh, right breast 1:00 11 cmFN" and consists of 3 needle cores of pink-yellow tissue measuring between 1.2 cm and 1.3 cm in length and 0.2 cm each in diameter which are entirely submitted in A1-A3. The specimen was obtained at 12:19 PM on 03/10/2020 and placed in formalin at 12:21 PM. The cold ischemic time is 2 minutes and the total formalin fixation time is greater than 6 hours less than 72 hours. . B. The specimen is received in formalin, labeled "Marleni Yeh, right axilla node 11 cmFN" and consists of 2 needle cores of yellow tissue measuring between 0.7 cm and 2.0 cm in length and 0.1-0.2 cm in diameter which are entirely submitted in B1-B2. (SDY; 03/11/2020) [facility] 03/12/2020 0914 Local . 02 Pathologist provided ICD-10: C50.911 . 02 CPT . 469921, [id number] Specimen Comment: A courtesy copy of this report has been sent to [phone] Specimen Comment: [id number], Specimen Comment: Report sent to ,DR FUENTES / DR KEEN Performed at: 01 [facility] [address], [place], [place] [id number] MD Obie Chavarria MD Phone: [phone] Performed at: 02 [facility] [address], [place] [id number] MD Jeffery Baires MD Phone: [phone]
== END | disposition home or self-care (01) ==
LOC: MAMMO 10:24
PROVIDERS: ATTEND Surgery
DX: R92.8 Other abnormal and inconclusive findings on diagnostic imaging of breast (principal); N63.10 Unspecified lump in the right breast, unspecified quadrant; C50.911 Malignant neoplasm of unspecified site of right female breast; I10 Essential (primary) hypertension; E78.00 Pure hypercholesterolemia, unspecified; K21.9 Gastro-esophageal reflux disease without esophagitis; E66.9 Obesity, unspecified; F41.9 Anxiety disorder, unspecified; F32.9 Major depressive disorder, single episode, unspecified; E11.9 Type 2 diabetes mellitus without complications; Z79.82 Long term (current) use of aspirin; Z79.84 Long term (current) use of oral hypoglycemic drugs; Z79.899 Other long term (current) drug therapy; Z87.891 Personal history of nicotine dependence; Z98.890 Other specified postprocedural states; Z91.040 Latex allergy status; Z88.8 Allergy status to other drugs, medicaments and biological substances
CPT/HCPCS: 19083; 38505; 76641; 76942; 77065; 88305; 88361; C1713; G0279; 19081; 77061

== ENCOUNTER → 2020-04-01 | Outpatient (CLI) | payer MEDICARE ==
[~2020-04-01] MED LIST changes: +HYDR-2761 PO
== END ==
LOC: LAB 15:02
PROVIDERS: ATTEND Surgery
DX: Z01.812 Encounter for preprocedural laboratory examination (principal); C50.911 Malignant neoplasm of unspecified site of right female breast; Z20.828 Contact with and (suspected) exposure to other viral communicable diseases
CPT/HCPCS: U0003

== ENCOUNTER 2020-04-05 06:22 | Observation (INO) | payer MEDICARE, MEDICAID ==
[~2020-04-05] VITALS: Ht 157.5 cm; Wt 63.5 kg
[2020-04-05] VITALS (11 sets, daily range): BP systolic 117–189; BP diastolic 64–79
[~2020-04-05 06:22] MED LIST changes: -HYDR-2761 PO; +INSULIN LISPRO 100 UNIT/ML 3ML VIAL for OP,RR ONLY. SQ PRN
[2020-04-05] MEDS ORDERED: LEVOFLOXACIN 750 MG IV ONE (06:30)
[2020-04-05] MEDS ORDERED: ONDANSETRON PF 4 MG/2 ML VIAL. IV PRN (07:00)
[2020-04-05] MEDS ORDERED: fentaNYL PF VIAL 100 MCG/2 ML VIAL IV PRN ×2 (07:00)
[2020-04-05] MEDS ORDERED: LIDOCAINE 1% PF 2 ML VIAL. ID PRN (07:00)
[2020-04-05] MEDS ORDERED: IV RINGERS,LACTATED 1000ML 1,000 ML IV SCH (07:00)
[2020-04-05] MEDS ORDERED: PROCHLORPERAZINE 10 MG/2 ML VIAL. IV PRN (07:00)
[2020-04-05] MEDS ORDERED: ISOSULFAN BLUE 1% 50 MG/5 ML VIAL. SQ ONE (08:32)
[2020-04-05] MEDS ORDERED: LIDOCAINE 2% PF 5 ML VIAL. ONE (08:33)
[2020-04-05] MEDS ORDERED: fentaNYL PF VIAL 100 MCG/2 ML VIAL ONE ×2 (08:33→10:50)
[2020-04-05] MEDS ORDERED: ONDANSETRON PF 4 MG/2 ML VIAL. ONE (08:33)
[2020-04-05] MEDS ORDERED: DEXAMETHASONE SOD PHOS 4 MG/ML VIAL ONE (08:33)
[2020-04-05] MEDS ORDERED: MIDAZOLAM HCL/PF 2 MG/2 ML VIAL. ONE (08:33)
[2020-04-05] MEDS ORDERED: PROPOFOL 10 MG/ML (20ML) VIAL. IV ONE (08:33)
[2020-04-05] MEDS ORDERED: diphenhydrAMINE 50 MG/ML VIAL ONE (09:39)
[2020-04-05] MEDS ORDERED: FAMOTIDINE 20 MG/2 ML VIAL ONE (09:39)
[2020-04-05] MEDS ORDERED: hydrALAZINE 20 MG/ML VIAL. ONE (09:44)
[2020-04-05] MEDS ORDERED: SEVOFLURANE > 120 MINUTES. IH ONE (10:37)
[2020-04-05] MEDS ORDERED: HYDROcodone/APAP 5/325MG 1 TAB TABLET PO PRN (12:00)
[2020-04-05] MEDS ORDERED: HYDROmorphone 2 MG/ML VIAL IV PRN (12:00)
[2020-04-05] MEDS ORDERED: ONDANSETRON PF 4 MG/2 ML VIAL. IVP PRN (12:00)
[2020-04-05] MEDS: IV NORMAL SALINE 1000ML BAG 1,000 ML IV SCH (12:00)
[2020-04-05] MEDS ORDERED: 0.9 % SODIUM CHLORIDE 10 ML DISP.SYRIN. IV PRN (12:00)
[2020-04-05] MEDS ORDERED: NALOXONE 0.4 MG/ML VIAL. IV PRN (12:00)
[2020-04-05] MEDS ORDERED: glipiZIDE 5 MG TABLET PO PRN (12:00)
--- NOTE | 2020-04-05 12:22 | RAD ---
Examination: PORTABLE CHEST 1V History: CXR IN OR FOR INCORRECT NEEDLE COUNT,POST MASECTOMY Comparison/Correlation: 05/01/2018 Findings: Portable supine frontal view of chest was obtained. Right-sided soft tissue gas at the lateral chest wall region is evident. Tubing overlies the right chest wall terminating overlying the right lower thoracic level. No radiopaque needles or other suspicious radiopaque foreign body identified. Minimal left basilar linear atelectasis is present. Left costophrenic angle blunting which may represent effusion or atelectasis also seen. No pneumothorax although the patient supine and the bony assessment. Bony structures are unremarkable. Right mastectomy. Impression: No suspicious radiopaque foreign body. Left basilar atelectasis. Left basilar costophrenic sulcus opacification which may represent loculated effusion or atelectasis. Right mastectomy noted. Electronically signed by: Jorje Wong MD (04/05/2020 12:19 PM) [id number]
--- NOTE | 2020-04-05 12:30 | RAD ---
Examination: SENTINEL NODE INJECTION History: BREAST CA RT / Comparison/Correlation: None Findings: Risks and benefits of intradermal administration of radiotracer were discussed with the patient and informed consent was obtained. Betadine swabs were utilized to plans the right periareolar region. At the 11:00 region 1 cm from the nipple, 1 mCi technetium 99m Lymphoseek was intradermally administered. The technologist present then had massaged the site of for a few to several minutes. No images were acquired. Impression: Successful intradermal administration of radiotracer involving the right breast 1:00 region. Electronically signed by: Jorje Wong MD (04/05/2020 12:27 PM) [id number]
[2020-04-05] MEDS ORDERED: MORPHINE SULFATE 2 MG/ML VIAL. ONE (12:40)
[2020-04-05] MEDS: MORPHINE SULFATE 2 MG/ML VIAL. IV PRN ×2 (12:42→12:56)
--- NOTE | 2020-04-05 12:59 | PDOC4 ---
Operative Note Operative Note Operative Note: Preoperative Diagnosis: Right breast cancer Postoperative Diagnosis: Same Procedure: Right simple mastectomy with sentinel lymph node biopsy Surgeon: Burt Strategic Planning Analyst: Jese CARVAJAL Anesthesia: General EBL: 50 mL Specimen: Right sentinel lymph nodes 1 through 3 to pathology, right breast stitch at 12:00 to pathology Drains: 19 [place]ian round Greg drain to right chest Complications: None Indication: The patient is a 55-year-old female who was recently diagnosed with right breast cancer. She has no interest in breast conservation and has elected for complete mastectomy. We plan to incorporate a sentinel lymph node biopsy. The risks of surgery were discussed which include bleeding, infection, pain, scar tissue, anesthetic risk, seroma formation, potential need for additional surgery procedure. She understands and would like to proceed. Description: The patient was taken initially to radiology where she underwent injection of technetium sulfur colloid. She was then brought to the operating room and laid supine on the operating table. General anesthesia was performed. The right breast and axilla were prepped with ChloraPrep and draped in a standard surgical manner. Five mL of Lymphazurin were injected deep to the nipple areolar complex. Several minutes were allowed to elapse. An elliptical tracing was made around the nipple areolar complex extending from the medial chest to the axilla. The superior lateral portion of the tracing was opened with a scalpel. Cautery dissection was carried down to the axillary tissues. There were two areas of marked increased nuclear uptake corresponding to sentinel lymph nodes. The first node stained blue as well. Both of these lymph nodes were harvested and sent to pathology. There was an additional axillary lymph node that stained blue but did not show increased nuclear uptake. This was also harvested and sent to pathology. All 3 lymph nodes were examined with frozen section and negative for metastasis. We then proceeded with the mastectomy. With a scalpel the skin was incised along the remainder of the elliptical tracing. The superior flap was developed first. The skin was mobilized from the deeper breast parenchyma and the dissection was carried to just below the clavicle. In a similar manner the inferior skin flap was developed. The dissection was carried inferiorly to include the inframammary fold. In a medial to lateral fashion the breast was taken off of the chest wall. Several blood vessels were encountered and readily controlled with cautery. The breast was marked with a stitch at the 12 o'clock position and it was sent to pathology. A 19 [place]ian WU drain was left in the chest space which exited inferiorly. This was secured to the skin with 2-0 silk. The subcutaneous tissue was closed with 3-0 Vicryl and skin approximated with 4-0 Monocryl. A sterile OpSite dressing was then applied. The patient tolerated the procedure well and was sent to the recovery room in stable condition. EMIL FUENTES MD Apr 05, 2020 12:59
[2020-04-05] MEDS: LISINOPRIL 20 MG TABLET PO SCH (13:00)
[2020-04-05] MEDS: amLODIPine BESYLATE 10 MG TABLET PO SCH (13:00)
[2020-04-05] MEDS: hydrALAZINE 25 MG TABLET PO SCH ×2 (13:00→21:04)
[2020-04-05] MEDS ORDERED: HYDROmorphone 2 MG/ML VIAL ONE (13:01)
[2020-04-05] MEDS: HYDROmorphone 2 MG/ML VIAL IV PRN ×2 (13:02→13:18)
[2020-04-05] MEDS ORDERED: PROCHLORPERAZINE 10 MG/2 ML VIAL. ONE (13:04)
[2020-04-05] MEDS: IV 1/2 NORMAL SALINE 1,000 ML IV SCH ×2 (14:42→22:00)
[2020-04-05] MEDS ORDERED: FLU VACC QS 2020-21(6MOS+)/PF 0.5 ML SYRINGE. VAX IM ONE (15:15)
[2020-04-05] MEDS ORDERED: INFLUENZA VAX SCREEN BY RX. MC PRN (15:15)
[2020-04-05] MEDS ORDERED: ATORVASTATIN CALCIUM 20 MG TABLET PO SCH (21:00)
[2020-04-05] MEDS: HYDROcodone/APAP 5/325MG 1 TAB TABLET PO PRN (22:00)
[2020-04-05] MEDS ORDERED: amLODIPine BESYLATE 10 MG TABLET PO ONE (22:00)
[2020-04-06 03:20] VITALS: BP 158/69
[2020-04-06 07:00] VITALS: BP 177/88
[2020-04-06] MEDS: HYDROcodone/APAP 5/325MG 1 TAB TABLET PO PRN (07:46)
[2020-04-06] MEDS: IV 1/2 NORMAL SALINE 1,000 ML IV SCH (08:00)
[2020-04-06] MEDS: amLODIPine BESYLATE 10 MG TABLET PO SCH (08:40)
[2020-04-06] MEDS: hydrALAZINE 25 MG TABLET PO SCH (08:41)
[2020-04-06] MEDS: LISINOPRIL 20 MG TABLET PO SCH (08:41)
--- NOTE | 2020-04-06 09:52 | NUR ---
SW following. Discussed with RN, pt from home, room air, cardiac diet. Pt had surgery 04/05/2020. RN advised no SW needs, and anticipates possible discharge home today with self care. SW will continue to follow.
[2020-04-06 10:50] VITALS: BP 148/77
[2020-04-06] MEDS: IV NORMAL SALINE 1000ML BAG 1,000 ML IV SCH (12:00)
[2020-04-06] MEDS ORDERED: HYDR-2761 PO (12:58)
--- NOTE | 2020-04-06 13:00 | DISCH ---
DISCHARGE INSTRUCTIONS Condition on Discharge Condition on Discharge: Stable Activity After Discharge Activity Instructions for Disc: Resume previous activity, Activity as tolerated Bathing Instructions: Shower-keep dressing dry Lifting Instructions after Dis: No heavy lifting, No pulling or pushing Driving Instructions after Dis: Do not drive Diet after Discharge Diet after Discharge: Regular Wound Incision Care Wound/Incision Care: Do not change dressing, Other, see below (drain care, leave dressing in place) Contacting the [facility] after DC Call your doctor for: Concerns you may have Follow-Up Follow up with: Dr Dallas 04/13 at 3pm, questions call [phone] CYNDY GAONA APRN Apr 06, 2020 13:00
--- NOTE | 2020-04-06 13:03 | PDOC3 ---
Discharge Summary Visit Information Date of Admission: Apr 05, 2020 Date of Discharge: Apr 06, 2020 Admitting Diagnosis Comment: right breast cancer Final Diagnosis right breast cancer Brief Hospital Course Allergies Allergies Coded Allergies Type Severity Reaction Last Updated Verified Latex, Natural Rubber Allergy Intermediate GETS BLISTER,CHAPPED SKIN ON HANDS 04/15/18 Yes Penicillins Allergy Intermediate 04/04/20 Yes metformin Allergy Intermediate 04/04/20 Yes Vital Signs Vital Signs Date Time Temp Pulse Resp B/P (MAP) Pulse Ox O2 Delivery O2 Flow Rate FiO2 04/06/20 10:50 98.0 88 18 148/77 (100) 96 Room Air 98.0 04/05/20 14:31 2.0 Lab Results Laboratory Tests Test 04/05/20 07:07 04/05/20 17:05 04/05/20 21:08 04/06/20 07:57 Glucose (Fingerstick) 118 mg/dL (70-99) 133 mg/dL (70-99) 150 mg/dL (70-99) 91 mg/dL (70-99) Test 04/06/20 11:43 Glucose (Fingerstick) 151 mg/dL (70-99) Laboratory Tests Test 04/05/20 17:05 04/05/20 21:08 04/06/20 07:57 04/06/20 11:43 Glucose (Fingerstick) 133 mg/dL (70-99) 150 mg/dL (70-99) 91 mg/dL (70-99) 151 mg/dL (70-99) Brief Hospital Course Ms. Pittman is a 55 old female who underwent Right simple mastectomy with sentinel lymph node biopsy. Postoperatively tolerating diet, pain managed, and ambulating. She is aware of how to care for drain at home. Incision dressing intact and will leave in place until FU next week Discharge Information Condition at Discharge: Stable Follow Up: Weeks (1) Disposition/Orders: D/C to Home Scheduled Amlodipine Besylate (Amlodipine Besylate) 10 Mg Tablet, 10 MG PO DAILY for HTN, (Reported) Entered as Reported by: MICKI MARY on 08/03/17 0906 Last Taken: Unknown Dose on 03/30/20 Last Action: Continued on 04/05/20 1157 by EMIL FUENTES Atorvastatin Calcium (Atorvastatin Calcium) 20 Mg Tablet, 20 MG PO HS for FOR CHOLESTEROL, (Reported) Entered as Reported by: MICKI MARY on 08/03/17905 Last Taken: Unknown Dose on 04/03/20 Last Action: Continued on 04/05/20 1157 by EMIL FUENTES Hydralazine Hcl (Hydralazine Hcl) 25 Mg Tablet, 1 TAB PO BID for HTN, (Reported) Entered as Reported by: JANA KING on 11/29/17 1654 Last Taken: Unknown Dose on 03/30/20 Last Action: Continued on 04/05/20 115 by EMIL FUENTES Lisinopril (Lisinopril) 40 Mg Tablet, 1 TAB PO DAILY for HTN, (Reported) Entered as Reported by: MICKI MARY on 08/03/17905 Last Taken: Unknown Dose on 03/30/20 Last Action: Continued on 04/05/201156 by EMIL FUENTES Scheduled PRN Glipizide (Glipizide) 5 Mg Tablet, 5 MG PO PRN DAILY PRN for BLOOD SUGAR > 140, (Reported) Entered as Reported by: ONUR MENCHACA on 04/12/18 1215 Last Taken: Unknown Dose on 04/04/20 Last Action: Continued on 04/05/201156 by EMIL FUENTES Hydrocodone Bit/Acetaminophen (Hydrocodone-Apap 5-325 ) 1 Tab Tablet, 1 TAB PO PRN Q4HRS PRN for MILD PAIN 1-3, #30 Ref 0 Prescribed by: Cyndy Feliciano on 04/06/20 1258 Justicifation of Admission Dx: Justifications for Admission: Justification of Admission Dx: Yes Comments: breast cancer CYNDY FELICIANO CARGO SERVICE SUPERVISOR Apr 06, 2020 13:03
[2020-04-06 15:00] VITALS: BP 161/71
--- NOTE | 2020-04-06 17:29 | NUR ---
Pt. discharged to home with WU drain and drain record. Pt. verbalized understanding of discharge instructions and WU drain home care.
--- NOTE | 2020-04-08 15:38 | PATHOLOGY ---
[facility] Accession Number: [id number] . 01 Material submitted: . PART A: lymph node - RIGHT BREAST, SENTINEL LYMPH NODE #1 - FS. Modifiers: right, 1 PART B: lymph node - RIGHT BREAST, SENTINEL LYMPH NODE #2 - FS. Modifiers: right, 2 PART C: breast - RIGHT BREAST, ADDITIONAL SUPERFICIAL MARGIN. Modifiers: right PART D: lymph node - RIGHT BREAST, SENTINEL LYMPH NODE #3 - FS. Modifiers: right, 3 PART E: breast - RIGHT BREAST, STITCH 12:00. Modifiers: right . 02 Frozen section diagnosis: . INTRAOPERATIVE CONSULTATION WITH FROZEN SECTION (Jeffery Baires MD) . A. [place] lymph node #1: - Negative for tumor. . The results are reported to Dr. Dallas in the operating room. . B. [place] lymph node #2: - Negative for tumor. . The results are reported to Dr. Dallas in the operating room. . D. [place] lymph node #3: - Negative for tumor. . The results are reported to Dr. Dallas in the operating room. . GROSS DESCRIPTION A. The specimen is received fresh for intraoperative consultation is designated "sentinel lymph node #1". This consists of an elongate segment of yellow-red fatty tissue measuring up to 3.0 x 1.5 x 1.1 cm. Sectioning reveals a partially fatty replaced pink-ridley lymph node measuring up to 2.8 cm in greatest dimension. This is submitted for frozen section as FSA1. The tissue remaining from frozen section is submitted for permanent sections as A1. . B. The specimen is received fresh for intraoperative consultation is designated "sentinel lymph node #2". This consists of a segment of yellow-red fatty tissue measuring up to 3.1 x 2.1 x 0.9 cm in greatest dimension. Sectioning reveals a ridley-brown lymph node measuring up to approximately 2 cm in greatest dimension. This is submitted for frozen section as FSB1. The tissue remaining from frozen section is submitted for permanent sections as B1. . (JPM:jesus; 04/05/2020) . D. The specimen is received fresh for intraoperative consultation and is designated "sentinel lymph node #3". This consists of a segment of yellow to pink-ridley fibrofatty tissue measuring up to 1.5 x 1.1 x 0.7 cm in greatest dimension. Sectioning reveals a yellow-ridley lymph node measuring 1.5 cm. This is submitted for frozen section as FSD1. The tissue remaining from frozen section is submitted for permanent sections as D1. (JPM:bethel; 04/05/2020) . Frozen section performed at [facility], [address] [place] [address]. REILLY/TERESSA . 02 Diagnosis: A. Lymph node, right sentinel lymph node #1: - Metastatic carcinoma (micrometastasis measuring approximately 1 mm in greatest dimension). . B. Lymph node, sentinel lymph node #2: - Negative for tumor. . C. Fibroadipose tissue, right breast additional superficial margin: - Negative for tumor. . D. Lymph node, sentinel lymph node #3: - Negative for tumor. . E. Breast, right simple mastectomy: - Invasive ductal carcinoma, histologic grade 3, forming a tumor mass of the superior breast at 12:00 measuring 1.8 cm in greatest dimension. 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 - Focal lymphovascular tumor invasion identified. - Invasive carcinoma is approximately 2 mm from the closest superficial margin of resection. - Previous biopsy site changes. - Stromal fibrosis and fibroadenomatous change of breast, focal. - Seborrheic keratosis, skin of breast. . (JPM:seo consultant/mml; 04/07/2020) . . . Surgical Pathology Cancer Case Summary . INVASIVE CARCINOMA OF THE BREAST: Resection . Procedure ___ Total mastectomy (including nipple-sparing and skin-sparing mastectomy) . Specimen Laterality ___ Right . + Tumor Site + ___ Clock position: 12 o'clock . Tumor Size ___ Greatest dimension of largest invasive focus >1 mm: 18 mm . Histologic Type ___ Invasive carcinoma of no special type (ductal) . Histologic Grade ([place] Histologic Score) . Glandular (Acinar)/Tubular Differentiation ___ Score 3 (<10% of tumor area forming glandular/tubular structures) . Nuclear Pleomorphism ___ Score 3 (vesicular nuclei, often with prominent nucleoli, exhibiting marked variation in size and shape, occasionally with very large and bizarre forms) . Mitotic Rate ___ Score 3 . Overall Grade ___ Grade 3 (scores of 8 or 9) . + Tumor Focality + ___ Single focus of invasive carcinoma . Ductal Carcinoma In Situ (DCIS) ___ Present + ___ Negative for extensive intraductal component (EIC) . + Architectural Patterns + ___ Solid and Papillary/Cribriform types with comedo-type necrosis . . + Nuclear Grade + ___ Grade III (high) . + Necrosis + ___ Present, central (expansive "comedo" necrosis) . + Lobular Carcinoma In Situ (LCIS) + ___ Not identified . Margins . Invasive Carcinoma Margins ___ Uninvolved by invasive carcinoma Distance from closest margin: 2 mm . + Specify closest margin(s): Superficial margin . DCIS Margins ___ Uninvolved by DCIS . ___ Distance from closest margin: 9 mm . ___ Specify closest margin(s): Superficial margin . Regional Lymph Nodes ___ Uninvolved by tumor cells Number of Lymph Nodes with Macrometastases (>2 mm): 0 Number of Lymph Nodes with Micrometastases (>0.2 mm to 2 mm and/or >200 cells): 1 . Size of Largest Metastatic Deposit (millimeters): 1 mm . Extranodal Extension ___ Not identified . Total Number of Lymph Nodes Examined: 3 Number of [place] Lymph Nodes Examined: 3 . + Lymphovascular Invasion + ___ Present . + Dermal Lymphovascular Invasion + ___ Not identified . Pathologic Stage Classification (pTNM, AJCC 8th Edition) . Primary Tumor (pT) ___ pT1c:Tumor >10 mm but =20 mm in greatest dimension . Regional Lymph Nodes (pN) . ___ pN1mi:Micrometastases (approximately 200 cells, larger than 0.2 mm, but none larger than 2.0 mm) . + Additional Pathologic Findings: See diagnoses . + Microcalcifications + ___ Present in DCIS + ___ Present in non-neoplastic tissue . (JPM:mml; 04/08/2020) MBR 04/08/2020 1427 Local . 02 Comment: The sentinel lymph nodes are examined at multiple levels. Immunoperoxidase stains for AE1/AE3 are also obtained on the sentinel lymph nodes and yield the following results: . AE1/AE3 (A1): Single micrometastasis identified measuring approximately 1 mm. AE1/AE3 (B1): Negative for tumor. AE1/AE3 (D1): Negative for tumor. . Thus, there is a single micrometastasis identified within 1 of the 3 sentinel lymph nodes. The micrometastasis is present in the deeper permanent sections and the AE1/AE3 stain of A1, and is not present in the original frozen sections of A1. . Sections of the right simple mastectomy reveal an invasive high-grade ductal carcinoma measuring up to 1.8 cm in greatest dimension within the superior breast at 12:00. There is an associated minor component of high-grade ductal carcinoma in situ. There is focal lymphovascular tumor invasion. The tumor is approximately 2 mm from the closest superficial margin of resection. Additional tissue from the right breast superficial margin is examined and is negative for tumor. . (JPM:seo consultant/mml; 04/07/2020) . 02 Electronically signed: . Jeffery Baires MD, Pathologist NPI- [id number] . 01 Gross description: . A. SEE FROZEN SECTION FOR GROSS DESCRIPTION . B. SEE FROZEN SECTION FOR GROSS DESCRIPTION . C. The specimen is received in formalin, labeled "Marleni Portillo-Laverne, additional superficial margin". Received is a 4 g unoriented segment of bright yellow lobulated tissue measuring 4.2 x 3.3 x 0.8 cm in greatest dimensions. The surgical margin is inked. Sectioning reveals bright yellow, lobulated cut surfaces throughout with no grossly distinct nodules or lesions. The specimen is serially sectioned and entirely submitted in cassettes C1 through C8. The cold ischemic time and time in formalin are not provided. The time out of formalin is 11:40 p.m. on 04/06/2020. (CAA; 04/06/2020) . D. SEE FROZEN SECTION FOR GROSS DESCRIPTION . E. The specimen is received in formalin, labeled "Marleni Bandar-Laverne, right breast, stitch at 12:00". Received is a 745 g mastectomy specimen oriented with a suture at the 12:00 margin. The specimen measures 25.2 cm from superior to inferior, 22.1 cm from medial to lateral, and 3.9 cm from anterior to posterior. On the anterior aspect of the specimen, there is an ellipse of skin present measuring 20.8 x 19.8 cm with a centrally located nipple measuring 1.4 x 1.2 cm. Due to the blue dye present surrounding the nipple, the areolar extent is not grossly distinct. The skin surface displays a well-circumscribed, raised and light brown lesion adjacent to the nipple measuring 1.0 x 0.7 cm. The specimen is inked as follows: Superior/anterior-blue, inferior/anterior-green, posterior-black. Sectioning reveals a well-demarcated firm white mass measuring 1.6 x 1.6 x 1.2 cm, which is 0.7 cm from the closest margin (superior/anterior). This mass is located immediately superior to the suture at the approximate 12:00 aspect, along the junction between the upper inner and upper outer quadrants. The remainder of the specimen displays bright yellow fibrofatty cut surfaces, with the fibrous tissue encompassing approximately 15% of the specimen. No additional nodules or lesions are noted grossly. The specimen is submitted marketing representative as follows: . E1 perpendicular section through nipple E2 marketing representative section of skin lesion adjacent to nipple E3-E6 entire mass submitted from medial to lateral aspects, with closest margins in cassette E4 and E5 E7 upper outer quadrant E8 lower outer quadrant E9 lower inner quadrant E10 upper inner quadrant. (CAA; 04/06/2020) QAC/QTP 04/07/2020 1426 Local . 02 Pathologist provided ICD-10: C50.911, D05.11 . 02 CPT . 312792, 510505, 828759, 567144, 777630, 270065, 828235, [id number], [id number] Specimen Comment: A courtesy copy of this report has been sent to [phone], [phone] Specimen Comment: [id number] Specimen Comment: Report sent to / DR KEEN Performed at: [address], [place], [place] [id number] MD Obie Chavarria MD Phone: [phone] Performed at: 02 [facility] [address], [place] [id number] MD Jeffery Baires MD Phone: [phone]
== END 2020-04-06 17:30 | disposition home or self-care (01) ==
LOC: NM 06:22 → 4 NORTH 11:50
PROVIDERS: ADMIT Surgery; ATTEND Surgery
DX: C50.911 Malignant neoplasm of unspecified site of right female breast (principal); Z23 Encounter for immunization; Z79.899 Other long term (current) drug therapy
CPT/HCPCS: 19303; 38525; 38792; 71045; 82962; 88304; 88307; 88331; 88342; 90471; 90686; 96361; 96374; A9520; G0378; G0379; J0360; J0780; J1100; J1170; J1200; J1815; J1956; J2250; J2270; J2405; J2704; J3010; J3490; J7120; Q9968

== ENCOUNTER 2020-06-04 07:15 | Outpatient (CLI) | payer MEDICARE, MEDICAID ==
[~2020-06-04] VITALS: Ht 165.1 cm; Wt 70.3 kg
[2020-06-04] VITALS (8 sets, daily range): BP systolic 127–181; BP diastolic 53–83
[~2020-06-04 07:15] MED LIST changes: -BUPR150T6 PO; +BUPR150T7 PO; +HYDR-2761 PO; -INSULIN LISPRO 100 UNIT/ML 3ML VIAL for OP,RR ONLY. SQ PRN
[2020-06-04] MEDS ORDERED: LIDOCAINE 2%/EPI 1:100,000 20 ML VIAL. ONE ×2 (08:06→08:56)
[2020-06-04 08:29] LABS: BASO # 0.1 x10^3/uL (0.0-0.2); BASO % 1 % (0-3); EOS # 0.1 x10^3/uL (0.0-0.7); EOS % 1 % (0-3); HEMATOCRIT 39.7 % (36.0-47.0); HEMOGLOBIN 13.1 g/dL (12.0-15.5); LYMPH % 12 % (24-48); MEAN CORPUSCULAR HEMOGLOBIN 31 pg (25-35); MEAN CORPUSCULAR HGB CONC 33 g/dL (31-37); MEAN CORPUSCULAR VOLUME 92 fL (79-100); MONO # 0.7 x10^3/uL (0.0-1.1); MONO % 8 % (0-9); NEUT # 6.6 x10^3/uL (1.8-7.7); NEUT % 78 % (31-73); PLATELET COUNT 331 x10^3/uL (140-400); RED CELL DISTRIBUTION WIDTH 14.9 % (11.5-14.5); WHITE BLOOD COUNT 8.5 x10^3/uL (4.0-11.0)
[2020-06-04 08:35] LABS: CALCIUM 9.3 mg/dL (8.5-10.1); CREATININE 0.8 mg/dL (0.6-1.0); GFR 74.5; POTASSIUM 3.5 mmol/L (3.5-5.1)
[2020-06-04] MEDS ORDERED: ASPI-630 PO (08:40)
[2020-06-04] MEDS ORDERED: HEPARIN PF 500 UNIT/5 ML DISP.SYRIN. IVP ONE ×2 (08:56→09:45)
[2020-06-04] MEDS ORDERED: fentaNYL PF VIAL 100 MCG/2 ML VIAL ONE (09:08)
[2020-06-04] MEDS ORDERED: ceFAZolin SODIUM IV Push 1 GM VIAL. IVP ONE ×2 (09:08→09:45)
[2020-06-04] MEDS ORDERED: MIDAZOLAM HCL/PF 2 MG/2 ML VIAL. ONE (09:08)
[2020-06-04] MEDS ORDERED: fentaNYL PF VIAL 100 MCG/2 ML VIAL IV ONE (09:45)
[2020-06-04] MEDS ORDERED: LIDOCAINE 2%/EPI 1:100,000 20 ML VIAL. IJ ONE (09:45)
[2020-06-04] MEDS ORDERED: MIDAZOLAM HCL/PF 2 MG/2 ML VIAL. IV ONE (09:45)
--- NOTE | 2020-06-04 11:34 | NUR ---
RN called patient's daughter, Alis, to notify of discharge. Patient taken to daughter's vehicle via wheelchair. VS stable, no bleeding at port site. Instructions provided on site care, sedation, and port. Verbalized understanding, no questions at this time. All belongings, including bag and cell phone, taken with patient at time of d/c.
--- NOTE | 2020-06-04 15:01 | RAD ---
Procedure: Ultrasound and fluoroscopically guided placement of right internal jugular power port.. 06/04/2020 12:57 PM Clinical Indication: Chemotherapy access Sedation: Conscious sedation was administered for 35 minutes. The patient was monitored by a qualified independent observer throughout the time of sedation. Please refer to the medical record for exact doses of medications utilized to achieve moderate sedation. Fluoroscopy time: 0.9 minutes Dose area product: 2 Gycm2 Consent: The procedure was explained in its entirety to the patient or the patients designated data entry representative by a member of the treatment team, including a discussion of the risks, benefits and commonly accepted alternatives to the procedure, as well as the expected consequences of no therapy whatsoever. Discussion of the risks included, but was not limited to, those that are most frequent and those that are rare but possibly severe or life-threatening, as well as the possibility of unforeseen complications. Technique and Findings: All elements of maximal sterile barrier technique including the use of a cap, mask, sterile gown, sterile gloves, large sterile sheet, appropriate hand hygiene, and 2% chlorhexidine for cutaneous antisepsis (or acceptable alternative antiseptic per current guidelines) were followed for this procedure. Following informed consent, and a timeout procedure, the patient was prepped and draped in the usual sterile fashion. Ultrasound interrogation of the right neck revealed patency and compressibility of the right internal jugular vein. A 21-gauge micropuncture was then used to gain access to this vein under ultrasound guidance. A hard copy ultrasound image was recorded. The needle was exchanged over a wire for a sheath. A 1 inch incision was made several centimeters inferior to the venotomy site. A catheter was tunneled from this site dermatotomy site in the neck. Catheter was advanced through peel-away sheath such that its tip was in the proximal right atrium with the patient supine. The catheter was trimmed to length and connected to the port reservoir. The port was found to flush and aspirate normally. The wound was closed in layers using 4-0 Vicryl suture. Sterile dressings were applied. Impression: Successful ultrasound and fluoroscopically guided placement of a right internal jugular PowerPort
== END 2020-06-04 11:35 | disposition home or self-care (01) ==
LOC: INTRAD 07:15
PROVIDERS: ATTEND Internal Medicine Hematology & Oncology
DX: Z45.2 Encounter for adjustment and management of vascular access device (principal); I10 Essential (primary) hypertension; E78.00 Pure hypercholesterolemia, unspecified; E66.9 Obesity, unspecified; K21.9 Gastro-esophageal reflux disease without esophagitis; F41.9 Anxiety disorder, unspecified; F32.9 Major depressive disorder, single episode, unspecified; E11.9 Type 2 diabetes mellitus without complications; Z87.440 Personal history of urinary (tract) infections; Z98.51 Tubal ligation status; Z98.890 Other specified postprocedural states; Z20.822 Contact with and (suspected) exposure to COVID-19; Z79.82 Long term (current) use of aspirin; Z79.899 Other long term (current) drug therapy; Z87.891 Personal history of nicotine dependence; Z88.0 Allergy status to penicillin; Z88.1 Allergy status to other antibiotic agents; Z91.040 Latex allergy status; Z68.25 Body mass index [BMI] 25.0-25.9, adult
CPT/HCPCS: 36415; 36561; 76937; 77001; 80048; 85025; 85610; 85730; 87426; 99152; 99153; C1751; C1892; C9803; J0690; J1642; J2250; J3010; J3490; U0003

== ENCOUNTER → 2020-06-10 | Outpatient (CLI) | payer MEDICARE ==
[2020-06-04 11:20] VITALS: BP 141/53
[~2020-06-10] MED LIST changes: +ASPI-630 PO
[2020-06-10 09:49] LABS: BASO # 0.1 x10^3/uL (0.0-0.2); BASO % 1 % (0-3); EOS # 0.1 x10^3/uL (0.0-0.7); EOS % 1 % (0-3); HEMATOCRIT 38.6 % (36.0-47.0); HEMOGLOBIN 13.1 g/dL (12.0-15.5); LYMPH % 12 % (24-48); MEAN CORPUSCULAR HEMOGLOBIN 31 pg (25-35); MEAN CORPUSCULAR HGB CONC 34 g/dL (31-37); MEAN CORPUSCULAR VOLUME 92 fL (79-100); MONO # 0.5 x10^3/uL (0.0-1.1); MONO % 6 % (0-9); NEUT # 6.8 x10^3/uL (1.8-7.7); NEUT % 80 % (31-73); PLATELET COUNT 317 x10^3/uL (140-400); RED BLOOD COUNT 4.21 x10^6/uL (3.50-5.40); WHITE BLOOD COUNT 8.5 x10^3/uL (4.0-11.0)
[2020-06-10 10:06] LABS: CREATININE 0.7 mg/dL (0.6-1.0); GFR 86.9; POTASSIUM 3.3 mmol/L (3.5-5.1)
[2020-06-10 10:12] LABS: ALBUMIN 3.7 g/dL (3.4-5.0); TOTAL BILIRUBIN 0.4 mg/dL (0.2-1.0); TOTAL PROTEIN 7.3 g/dL (6.4-8.2)
== END ==
LOC: ONCLAB 09:19
PROVIDERS: ATTEND Internal Medicine Hematology & Oncology
DX: C50.412 Malignant neoplasm of upper-outer quadrant of left female breast (principal)
CPT/HCPCS: 36415; 80053; 85025

== ENCOUNTER → 2020-06-17 | Outpatient (CLI) | payer MEDICARE ==
[2020-06-04 11:20] VITALS: BP 141/53
[2020-06-17 11:06] LABS: BASO # 0.1 x10^3/uL (0.0-0.2); BASO % 1 % (0-3); EOS # 0.1 x10^3/uL (0.0-0.7); EOS % 1 % (0-3); HEMATOCRIT 42.2 % (36.0-47.0); HEMOGLOBIN 13.8 g/dL (12.0-15.5); LYMPH # 1.3 x10^3/uL (1.0-4.8); LYMPH % 19 % (24-48); MEAN CORPUSCULAR HEMOGLOBIN 30 pg (25-35); MEAN CORPUSCULAR HGB CONC 33 g/dL (31-37); MEAN CORPUSCULAR VOLUME 91 fL (79-100); MONO # 1.6 x10^3/uL (0.0-1.1); MONO % 23 % (0-9); NEUT # 3.8 x10^3/uL (1.8-7.7); NEUT % 56 % (31-73); PLATELET COUNT 228 x10^3/uL (140-400); RED BLOOD COUNT 4.64 x10^6/uL (3.50-5.40); RED CELL DISTRIBUTION WIDTH 14.7 % (11.5-14.5); WHITE BLOOD COUNT 6.8 x10^3/uL (4.0-11.0)
[2020-06-17 11:22] LABS: CALCIUM 9.3 mg/dL (8.5-10.1); GFR 57.6; POTASSIUM 3.3 mmol/L (3.5-5.1)
[2020-06-17 11:28] LABS: ALBUMIN 3.7 g/dL (3.4-5.0); TOTAL BILIRUBIN 0.6 mg/dL (0.2-1.0); TOTAL PROTEIN 7.4 g/dL (6.4-8.2)
[2020-06-17 11:48] LABS: % BANDS 1 % (0-9); % EOS 3 % (0-5); % LYMPHS 32 % (24-48); % MONOS 18 % (0-10); % SEGS 46 % (35-66)
[2020-06-17 11:56] LABS: ANISOCYTOSIS SLIGHT; PLT ESTIMATE ADEQUATE (ADEQUATE); POLYCHROMASIA SLIGHT
[2020-06-17 11:57] LABS: TOXIC GRANULATION MOD
== END ==
LOC: ONCLAB 10:55
PROVIDERS: ATTEND Internal Medicine Hematology & Oncology
DX: C50.412 Malignant neoplasm of upper-outer quadrant of left female breast (principal)
CPT/HCPCS: 36415; 80053; 85007; 85025

== ENCOUNTER → 2020-06-23 | Outpatient (CLI) | payer MEDICARE ==
[2020-06-04 11:20] VITALS: BP 141/53
[2020-06-23 11:43] LABS: BASO # 0.1 x10^3/uL (0.0-0.2); BASO % 0 % (0-3); EOS % 0 % (0-3); HEMATOCRIT 41.1 % (36.0-47.0); HEMOGLOBIN 13.4 g/dL (12.0-15.5); LYMPH # 1.3 x10^3/uL (1.0-4.8); LYMPH % 9 % (24-48); MEAN CORPUSCULAR HEMOGLOBIN 30 pg (25-35); MEAN CORPUSCULAR HGB CONC 33 g/dL (31-37); MEAN CORPUSCULAR VOLUME 91 fL (79-100); MONO % 7 % (0-9); NEUT # 11.9 x10^3/uL (1.8-7.7); NEUT % 84 % (31-73); PLATELET COUNT 274 x10^3/uL (140-400); RED BLOOD COUNT 4.52 x10^6/uL (3.50-5.40); RED CELL DISTRIBUTION WIDTH 14.6 % (11.5-14.5); WHITE BLOOD COUNT 14.2 x10^3/uL (4.0-11.0)
[2020-06-23 11:53] LABS: CALCIUM 8.9 mg/dL (8.5-10.1); CREATININE 0.8 mg/dL (0.6-1.0); GFR 74.5
== END ==
LOC: ONCLAB 10:58
PROVIDERS: ATTEND Physician Assistant
DX: C50.412 Malignant neoplasm of upper-outer quadrant of left female breast (principal)
CPT/HCPCS: 36415; 80048; 85025

== ENCOUNTER → 2020-07-01 | Outpatient (CLI) | payer MEDICARE ==
[2020-06-04 11:20] VITALS: BP 141/53
[~2020-07-01] MED LIST changes: +BUPR150T21 PO; -BUPR150T7 PO
[2020-07-01 10:33] LABS: BASO # 0.2 x10^3/uL (0.0-0.2); BASO % 2 % (0-3); EOS % 0 % (0-3); HEMATOCRIT 37.5 % (36.0-47.0); HEMOGLOBIN 12.4 g/dL (12.0-15.5); LYMPH # 1.2 x10^3/uL (1.0-4.8); LYMPH % 15 % (24-48); MEAN CORPUSCULAR HEMOGLOBIN 30 pg (25-35); MEAN CORPUSCULAR HGB CONC 33 g/dL (31-37); MEAN CORPUSCULAR VOLUME 92 fL (79-100); MONO # 0.8 x10^3/uL (0.0-1.1); MONO % 11 % (0-9); NEUT # 5.6 x10^3/uL (1.8-7.7); NEUT % 72 % (31-73); PLATELET COUNT 489 x10^3/uL (140-400); RED CELL DISTRIBUTION WIDTH 15.5 % (11.5-14.5); WHITE BLOOD COUNT 7.9 x10^3/uL (4.0-11.0)
[2020-07-01 11:00] LABS: ALBUMIN 3.5 g/dL (3.4-5.0); ALBUMIN/GLOBULIN RATIO 0.9 (1.0-1.7); CALCIUM 8.6 mg/dL (8.5-10.1); CREATININE 0.8 mg/dL (0.6-1.0); GFR 74.5; POTASSIUM 4.3 mmol/L (3.5-5.1); TOTAL BILIRUBIN 0.3 mg/dL (0.2-1.0); TOTAL PROTEIN 7.3 g/dL (6.4-8.2)
== END ==
LOC: ONCLAB 10:10
PROVIDERS: ATTEND Internal Medicine Hematology & Oncology
DX: C50.412 Malignant neoplasm of upper-outer quadrant of left female breast (principal)
CPT/HCPCS: 36415; 80053; 85025

== ENCOUNTER → 2020-07-09 | Outpatient (CLI) | payer MEDICARE ==
[2020-06-04 11:20] VITALS: BP 141/53
[2020-07-09 11:40] LABS: BASO # 0.1 x10^3/uL (0.0-0.2); BASO % 1 % (0-3); EOS # 0.1 x10^3/uL (0.0-0.7); EOS % 1 % (0-3); HEMATOCRIT 37.9 % (36.0-47.0); HEMOGLOBIN 12.7 g/dL (12.0-15.5); LYMPH # 1.6 x10^3/uL (1.0-4.8); LYMPH % 13 % (24-48); MEAN CORPUSCULAR HEMOGLOBIN 30 pg (25-35); MEAN CORPUSCULAR HGB CONC 34 g/dL (31-37); MEAN CORPUSCULAR VOLUME 90 fL (79-100); MONO # 1.7 x10^3/uL (0.0-1.1); MONO % 14 % (0-9); NEUT # 8.6 x10^3/uL (1.8-7.7); NEUT % 71 % (31-73); PLATELET COUNT 306 x10^3/uL (140-400); RED BLOOD COUNT 4.19 x10^6/uL (3.50-5.40); RED CELL DISTRIBUTION WIDTH 15.5 % (11.5-14.5); WHITE BLOOD COUNT 12.1 x10^3/uL (4.0-11.0)
[2020-07-09 11:51] LABS: CALCIUM 8.6 mg/dL (8.5-10.1); CREATININE 0.9 mg/dL (0.6-1.0); POTASSIUM 3.3 mmol/L (3.5-5.1)
[2020-07-09 11:54] LABS: ALBUMIN 3.7 g/dL (3.4-5.0); ALBUMIN/GLOBULIN RATIO 1.1 (1.0-1.7); TOTAL BILIRUBIN 0.5 mg/dL (0.2-1.0); TOTAL PROTEIN 7.2 g/dL (6.4-8.2)
[2020-07-09 12:42] LABS: % ATYL 7 % (0-0); % BANDS 13 % (0-9); % EOS 2 % (0-5); % MONOS 13 % (0-10); % MYELOS 3 % (0-0); % SEGS 40 % (35-66); NUCLEATED RBC 2
[2020-07-09 12:44] LABS: % LYMPHS 17 % (24-48); % METAS 5 % (0-0)
[2020-07-09 12:45] LABS: PLT ESTIMATE ADEQUATE (ADEQUATE)
[2020-07-09 12:46] LABS: POLYCHROMASIA SLIGHT; TOXIC GRANULATION SLIGHT
== END ==
LOC: ONCLAB 11:12
PROVIDERS: ATTEND Internal Medicine Hematology & Oncology
DX: C50.412 Malignant neoplasm of upper-outer quadrant of left female breast (principal)
CPT/HCPCS: 36415; 80053; 85007; 85025

== ENCOUNTER → 2020-07-22 | Outpatient (CLI) | payer MEDICARE ==
[2020-06-04 11:20] VITALS: BP 141/53
[2020-07-22 10:48] LABS: BASO # 0.1 x10^3/uL (0.0-0.2); BASO % 1 % (0-3); EOS % 0 % (0-3); HEMOGLOBIN 12.6 g/dL (12.0-15.5); LYMPH # 0.8 x10^3/uL (1.0-4.8); LYMPH % 10 % (24-48); MEAN CORPUSCULAR HEMOGLOBIN 31 pg (25-35); MEAN CORPUSCULAR HGB CONC 34 g/dL (31-37); MEAN CORPUSCULAR VOLUME 92 fL (79-100); MONO # 0.8 x10^3/uL (0.0-1.1); MONO % 9 % (0-9); NEUT # 6.6 x10^3/uL (1.8-7.7); NEUT % 80 % (31-73); PLATELET COUNT 396 x10^3/uL (140-400); RED BLOOD COUNT 4.03 x10^6/uL (3.50-5.40); RED CELL DISTRIBUTION WIDTH 16.9 % (11.5-14.5); WHITE BLOOD COUNT 8.3 x10^3/uL (4.0-11.0)
[2020-07-22 11:00] LABS: CALCIUM 9.2 mg/dL (8.5-10.1); CREATININE 0.8 mg/dL (0.6-1.0); GFR 74.5
[2020-07-22 11:07] LABS: ALBUMIN 3.5 g/dL (3.4-5.0); ALBUMIN/GLOBULIN RATIO 0.9 (1.0-1.7); TOTAL BILIRUBIN 0.5 mg/dL (0.2-1.0); TOTAL PROTEIN 7.2 g/dL (6.4-8.2)
== END ==
LOC: ONCLAB 10:24
PROVIDERS: ATTEND Physician Assistant
DX: C50.412 Malignant neoplasm of upper-outer quadrant of left female breast (principal)
CPT/HCPCS: 36415; 80053; 85025

== ENCOUNTER → 2020-08-02 | Outpatient (CLI) | payer MEDICARE ==
[2020-06-04 11:20] VITALS: BP 141/53
[2020-08-02 11:41] LABS: BASO # 0.1 x10^3/uL (0.0-0.2); BASO % 0 % (0-3); EOS % 0 % (0-3); HEMATOCRIT 35.3 % (36.0-47.0); HEMOGLOBIN 11.4 g/dL (12.0-15.5); LYMPH # 1.7 x10^3/uL (1.0-4.8); LYMPH % 6 % (24-48); MEAN CORPUSCULAR HEMOGLOBIN 30 pg (25-35); MEAN CORPUSCULAR HGB CONC 32 g/dL (31-37); MEAN CORPUSCULAR VOLUME 92 fL (79-100); MONO # 1.4 x10^3/uL (0.0-1.1); MONO % 5 % (0-9); NEUT # 23.2 x10^3/uL (1.8-7.7); NEUT % 88 % (31-73); PLATELET COUNT 281 x10^3/uL (140-400); RED BLOOD COUNT 3.84 x10^6/uL (3.50-5.40); RED CELL DISTRIBUTION WIDTH 17.6 % (11.5-14.5); WHITE BLOOD COUNT 26.4 x10^3/uL (4.0-11.0)
[2020-08-02 11:52] LABS: CALCIUM 8.2 mg/dL (8.5-10.1); CREATININE 0.7 mg/dL (0.6-1.0); GFR 86.9; POTASSIUM 3.8 mmol/L (3.5-5.1)
[2020-08-02 11:59] LABS: ALBUMIN 3.4 g/dL (3.4-5.0); TOTAL BILIRUBIN 0.4 mg/dL (0.2-1.0); TOTAL PROTEIN 6.7 g/dL (6.4-8.2)
[2020-08-02 12:34] LABS: % ATYL 4 % (0-0); % BANDS 9 % (0-9); % LYMPHS 9 % (24-48); % METAS 2 % (0-0); % MONOS 3 % (0-10); % SEGS 73 % (35-66); ANISOCYTOSIS SLIGHT; PLT ESTIMATE ADEQUATE (ADEQUATE); POLYCHROMASIA SLIGHT; TOXIC GRANULATION MOD
== END ==
LOC: ONCLAB 11:08
PROVIDERS: ATTEND Physician Assistant
DX: C50.412 Malignant neoplasm of upper-outer quadrant of left female breast (principal)
CPT/HCPCS: 36415; 80053; 85007; 85025

== ENCOUNTER → 2020-08-12 | Outpatient (CLI) | payer MEDICARE ==
[2020-06-04 11:20] VITALS: BP 141/53
[2020-08-12 10:57] LABS: BASO # 0.1 x10^3/uL (0.0-0.2); BASO % 1 % (0-3); EOS % 1 % (0-3); HEMATOCRIT 34.6 % (36.0-47.0); HEMOGLOBIN 11.5 g/dL (12.0-15.5); LYMPH # 0.8 x10^3/uL (1.0-4.8); LYMPH % 10 % (24-48); MEAN CORPUSCULAR HEMOGLOBIN 31 pg (25-35); MEAN CORPUSCULAR HGB CONC 33 g/dL (31-37); MEAN CORPUSCULAR VOLUME 92 fL (79-100); MONO # 0.8 x10^3/uL (0.0-1.1); MONO % 9 % (0-9); NEUT # 6.4 x10^3/uL (1.8-7.7); NEUT % 79 % (31-73); PLATELET COUNT 314 x10^3/uL (140-400); RED BLOOD COUNT 3.75 x10^6/uL (3.50-5.40); RED CELL DISTRIBUTION WIDTH 18.6 % (11.5-14.5); WHITE BLOOD COUNT 8.1 x10^3/uL (4.0-11.0)
[2020-08-12 11:09] LABS: CALCIUM 8.5 mg/dL (8.5-10.1); CREATININE 0.7 mg/dL (0.6-1.0); GFR 86.9; POTASSIUM 3.4 mmol/L (3.5-5.1)
[2020-08-12 11:15] LABS: ALBUMIN 3.5 g/dL (3.4-5.0); ALBUMIN/GLOBULIN RATIO 1.1 (1.0-1.7); TOTAL BILIRUBIN 0.5 mg/dL (0.2-1.0); TOTAL PROTEIN 6.7 g/dL (6.4-8.2)
== END ==
LOC: ONCLAB 10:39
PROVIDERS: ATTEND Physician Assistant
DX: C50.412 Malignant neoplasm of upper-outer quadrant of left female breast (principal)
CPT/HCPCS: 36415; 80053; 83615; 85025

== ENCOUNTER → 2020-08-19 | Outpatient (CLI) | payer MEDICARE ==
[2020-06-04 11:20] VITALS: BP 141/53
[2020-08-19 11:38] LABS: BASO # 0.1 x10^3/uL (0.0-0.2); BASO % 2 % (0-3); EOS # 0.1 x10^3/uL (0.0-0.7); EOS % 2 % (0-3); HEMATOCRIT 33.3 % (36.0-47.0); HEMOGLOBIN 11.4 g/dL (12.0-15.5); LYMPH # 0.8 x10^3/uL (1.0-4.8); LYMPH % 20 % (24-48); MEAN CORPUSCULAR HEMOGLOBIN 31 pg (25-35); MEAN CORPUSCULAR HGB CONC 34 g/dL (31-37); MEAN CORPUSCULAR VOLUME 92 fL (79-100); MONO # 1.2 x10^3/uL (0.0-1.1); MONO % 29 % (0-9); NEUT # 1.9 x10^3/uL (1.8-7.7); NEUT % 48 % (31-73); PLATELET COUNT 232 x10^3/uL (140-400); RED BLOOD COUNT 3.63 x10^6/uL (3.50-5.40); RED CELL DISTRIBUTION WIDTH 17.9 % (11.5-14.5); WHITE BLOOD COUNT 4.1 x10^3/uL (4.0-11.0)
[2020-08-19 11:44] LABS: CALCIUM 9.1 mg/dL (8.5-10.1); CREATININE 0.7 mg/dL (0.6-1.0); GFR 86.9; POTASSIUM 3.7 mmol/L (3.5-5.1)
[2020-08-19 13:18] LABS: % ATYL 7 % (0-0); % BANDS 4 % (0-9); % BASOS 1 % (0-3); % EOS 2 % (0-5); % LYMPHS 18 % (24-48); % MONOS 35 % (0-10); % MYELOS 2 % (0-0); % SEGS 31 % (35-66); ANISOCYTOSIS SLIGHT; NUCLEATED RBC 4; PLT ESTIMATE ADEQUATE (ADEQUATE)
== END ==
LOC: ONCLAB 11:14
PROVIDERS: ATTEND Physician Assistant
DX: C50.412 Malignant neoplasm of upper-outer quadrant of left female breast (principal)
CPT/HCPCS: 36415; 80048; 85007; 85025

== ENCOUNTER → 2020-09-02 | Outpatient (CLI) | payer MEDICARE ==
[2020-06-04 11:20] VITALS: BP 141/53
[2020-09-02 10:58] LABS: BASO # 0.1 x10^3/uL (0.0-0.2); BASO % 1 % (0-3); EOS % 0 % (0-3); HEMATOCRIT 33.6 % (36.0-47.0); HEMOGLOBIN 11.4 g/dL (12.0-15.5); LYMPH # 0.6 x10^3/uL (1.0-4.8); LYMPH % 6 % (24-48); MEAN CORPUSCULAR HEMOGLOBIN 32 pg (25-35); MEAN CORPUSCULAR HGB CONC 34 g/dL (31-37); MEAN CORPUSCULAR VOLUME 94 fL (79-100); MONO # 0.7 x10^3/uL (0.0-1.1); MONO % 7 % (0-9); NEUT # 8.8 x10^3/uL (1.8-7.7); NEUT % 86 % (31-73); PLATELET COUNT 397 x10^3/uL (140-400); RED BLOOD COUNT 3.57 x10^6/uL (3.50-5.40); RED CELL DISTRIBUTION WIDTH 19.1 % (11.5-14.5); WHITE BLOOD COUNT 10.2 x10^3/uL (4.0-11.0)
[2020-09-02 11:08] LABS: CALCIUM 8.3 mg/dL (8.5-10.1); CREATININE 0.7 mg/dL (0.6-1.0); GFR 86.9; POTASSIUM 3.9 mmol/L (3.5-5.1)
[2020-09-02 11:14] LABS: ALBUMIN 3.5 g/dL (3.4-5.0); ALBUMIN/GLOBULIN RATIO 1.3 (1.0-1.7); MAGNESIUM 1.7 mg/dL (1.8-2.4); TOTAL BILIRUBIN 0.3 mg/dL (0.2-1.0); TOTAL PROTEIN 6.3 g/dL (6.4-8.2)
[2020-09-02 12:24] LABS: % BANDS 11 % (0-9); % LYMPHS 9 % (24-48); % MONOS 9 % (0-10); % SEGS 71 % (35-66)
[2020-09-02 12:25] LABS: PLT ESTIMATE ADEQUATE (ADEQUATE)
[2020-09-02 12:26] LABS: ANISOCYTOSIS SLIGHT
== END ==
LOC: ONCLAB 10:32
PROVIDERS: ATTEND Physician Assistant
DX: C50.412 Malignant neoplasm of upper-outer quadrant of left female breast (principal)
CPT/HCPCS: 36415; 80053; 83615; 83735; 85007; 85025

== ENCOUNTER 2020-10-06 11:35 | Day surgery (SDC) | payer MEDICARE ==
[~2020-10-06] VITALS: Ht 157.5 cm; Wt 61.2 kg
[~2020-10-06 11:35] MED LIST changes: +ANAS1TAB47 PO; +FLUT9.9S NS; +MAGN250T9 PO; +POTA8CAP19 PO
[2020-10-06 12:19] VITALS: BP 196/86
[2020-10-06] MEDS ORDERED: PROPOFOL 10 MG/ML (20ML) VIAL. IV ONE (12:25)
[2020-10-06] MEDS ORDERED: LIDOCAINE 2% PF 5 ML VIAL. ONE (12:25)
[2020-10-06] MEDS ORDERED: fentaNYL PF VIAL 100 MCG/2 ML VIAL ONE ×3 (12:26→14:12)
[2020-10-06] MEDS ORDERED: MIDAZOLAM HCL/PF 2 MG/2 ML VIAL. ONE (12:26)
[2020-10-06] MEDS ORDERED: BUPIVACAINE-EPI 0.5% 30 ML VIAL KIT. ONE (12:27)
[2020-10-06] MEDS ORDERED: ONDANSETRON PF 4 MG/2 ML VIAL. ONE (12:28)
[2020-10-06] MEDS ORDERED: DEXAMETHASONE SOD PHOS 4 MG/ML VIAL ONE (12:28)
[2020-10-06] MEDS ORDERED: IV RINGERS,LACTATED 1000ML 1,000 ML IV SCH (12:45)
[2020-10-06] MEDS ORDERED: INSULIN LISPRO 100 UNIT/ML 3ML VIAL for OP,RR ONLY. SQ PRN (12:45)
[2020-10-06] MEDS ORDERED: diphenhydrAMINE 50 MG/ML VIAL ONE (13:19)
[2020-10-06] MEDS ORDERED: hydrALAZINE 20 MG/ML VIAL. ONE (13:39)
[2020-10-06] MEDS ORDERED: SEVOFLURANE 61 TO 120 MINUTES. IH ONE (13:41)
[2020-10-06] MEDS ORDERED: SEVOFLURANE 31 TO 60 MINUTES. IH ONE (13:45)
--- NOTE | 2020-10-06 13:47 | PDOC4 ---
Operative Note Operative Note Operative Note: Preoperative Diagnosis: Breast cancer Postoperative Diagnosis: Same Procedure: Removal of Port-A-Cath Surgeon: Burt Electrical Tester: Liliana CARVAJAL Anesthesia: General EBL: 10 mL Specimen: Port to pathology Drains: None Complications: None Indication: The patient is a 55-year-old female who underwent adjuvant chemotherapy for breast cancer. She is complete her treatment and request was made for removal of the Port-A-Cath. The risks of surgery were discussed which include bleeding, infection, wound healing problems, pain, potential need for additional surgery procedure. She understands and would like to proceed. Description: The patient was taken to the operating room and placed supine on the operating table. General anesthesia was performed. The right chest was prepped with ChloraPrep and draped in a standard surgical manner. An incision was made at the site of her prior scar. Sharp dissection was carried down to the capsule of the port. The capsule was opened exposing the port. There were no attaching sutures and the port readily lifted out of the pocket. The catheter portion was withdrawn without difficulty. The tract was oversewn with 3-0 Vicryl. The port was then fully removed and sent to pathology. Several small bleeding spots were controlled with cautery. The skin was closed with 4-0 Monocryl and a sterile dressing was applied. The patient tolerated the procedure well and was sent to the recovery room in stable condition. At the end the case all counts were correct. EMIL FUENTES MD Oct 06, 2020 13:47
--- NOTE | 2020-10-06 13:50 | DISCH ---
DISCHARGE INSTRUCTIONS Condition on Discharge Condition on Discharge: Stable Activity After Discharge Activity Instructions for Disc: Activity as tolerated Diet after Discharge Diet after Discharge: Regular Wound Incision Care Wound/Incision Care: Other, see below (keep dressing clean and dry X 72 hours, may then remove and shower) Follow-Up Follow up with: Dr Fuentes in 1 week in office, call for appointment [phone] EMIL FUENTES MD Oct 06, 2020 13:50
[2020-10-06] MEDS ORDERED: fentaNYL PF VIAL 100 MCG/2 ML VIAL IVP PRN ×2 (14:30)
[2020-10-06] MEDS ORDERED: HYDROcodone/APAP 5/325MG 1 TAB TABLET PO ONE (14:30)
[2020-10-06] MEDS ORDERED: PROCHLORPERAZINE 10 MG/2 ML VIAL. IVP PRN (14:30)
[2020-10-06] MEDS ORDERED: MORPHINE SULFATE 2 MG/ML VIAL. IVP PRN (14:30)
[2020-10-06] MEDS ORDERED: HYDROmorphone 2 MG/ML VIAL IV PRN ×2 (14:30)
[2020-10-06] MEDS ORDERED: ONDANSETRON PF 4 MG/2 ML VIAL. IVP PRN (14:30)
[2020-10-06 14:35] VITALS: BP 151/71
[2020-10-06] MEDS ORDERED: HYDR-2759 PO (14:51)
== END 2020-10-06 15:30 | disposition home or self-care (01) ==
LOC: SURG 11:35
PROVIDERS: ATTEND Surgery
DX: Z45.2 Encounter for adjustment and management of vascular access device (principal); C50.911 Malignant neoplasm of unspecified site of right female breast; E78.00 Pure hypercholesterolemia, unspecified; I10 Essential (primary) hypertension; K21.9 Gastro-esophageal reflux disease without esophagitis; E66.9 Obesity, unspecified; F41.9 Anxiety disorder, unspecified; F32.9 Major depressive disorder, single episode, unspecified; E11.9 Type 2 diabetes mellitus without complications; Z79.82 Long term (current) use of aspirin; Z79.84 Long term (current) use of oral hypoglycemic drugs; Z79.899 Other long term (current) drug therapy; Z98.890 Other specified postprocedural states; Z87.891 Personal history of nicotine dependence; Z91.040 Latex allergy status; Z88.0 Allergy status to penicillin; Z88.8 Allergy status to other drugs, medicaments and biological substances
CPT/HCPCS: 36590; 82962; J0360; J1100; J1200; J1956; J2250; J2405; J2704; J3010; A4364; A4452; A4657; A4930; A6254; A6257; A6258; A6402

== ENCOUNTER → 2020-11-10 | Outpatient (CLI) | payer MEDICARE ==
[~2020-11-10] MED LIST changes: +HYDR-2759 PO
[2020-11-10 09:05] LABS: BASO % 1 % (0-3); EOS # 0.1 x10^3/uL (0.0-0.7); EOS % 2 % (0-3); HEMATOCRIT 44.2 % (36.0-47.0); HEMOGLOBIN 14.5 g/dL (12.0-15.5); LYMPH # 1.4 x10^3/uL (1.0-4.8); LYMPH % 25 % (24-48); MEAN CORPUSCULAR HEMOGLOBIN 31 pg (25-35); MEAN CORPUSCULAR HGB CONC 33 g/dL (31-37); MEAN CORPUSCULAR VOLUME 94 fL (79-100); MONO # 0.5 x10^3/uL (0.0-1.1); MONO % 9 % (0-9); NEUT # 3.7 x10^3/uL (1.8-7.7); NEUT % 64 % (31-73); PLATELET COUNT 295 x10^3/uL (140-400); RED BLOOD COUNT 4.72 x10^6/uL (3.50-5.40); RED CELL DISTRIBUTION WIDTH 15.8 % (11.5-14.5); WHITE BLOOD COUNT 5.8 x10^3/uL (4.0-11.0)
[2020-11-10 09:19] LABS: CALCIUM 9.5 mg/dL (8.5-10.1); CREATININE 0.8 mg/dL (0.6-1.0); GFR 74.5; POTASSIUM 3.7 mmol/L (3.5-5.1)
[2020-11-10 09:25] LABS: ALBUMIN 3.9 g/dL (3.4-5.0); TOTAL BILIRUBIN 0.4 mg/dL (0.2-1.0); TOTAL PROTEIN 7.9 g/dL (6.4-8.2)
== END ==
LOC: ONCLAB 08:21
PROVIDERS: ATTEND Internal Medicine Hematology & Oncology
DX: C50.412 Malignant neoplasm of upper-outer quadrant of left female breast (principal)
CPT/HCPCS: 36415; 80053; 85025

== ENCOUNTER → 2021-08-25 | Outpatient (CLI) | payer MEDICARE, MEDICAID ==
--- NOTE | 2021-08-26 09:19 | KCIC ---
Ultrasound of the right neck 08/25/2021 CLINICAL HISTORY: Palpable lump in the base of the right neck. TECHNIQUE: A real-time ultrasound examination of the right neck in the area where the patient feels a palpable abnormalities was performed. Multiple images were obtained. FINDINGS: Two reactive lymph nodes are seen within the inferior right neck which corresponds to the p atient's palpable abnormalities. One measures 0.9 cm in greatest diameter. The second measures 0.8 cm in greatest diameter. No abnormal soft tissue mass or fluid collection is seen. IMPRESSION: The patient's palpable abnormalities represent two reactive lymph nodes as discussed [id number] [id number]. Electronically signed by: Wilfrido Cyr MD (08/26/2021 9:16 AM) [id number]
== END ==
LOC: KCIC US 14:02
PROVIDERS: ATTEND Nurse Practitioner
DX: R22.1 Localized swelling, mass and lump, neck (principal)
CPT/HCPCS: 76536